=== PATIENT | female | born 1990 | race Caucasian/White ===

== ENCOUNTER 2017-11-21 02:25 | Inpatient (IN) ==
--- OUTSIDE RECORDS SUMMARY | 2017-11-21 05:53 | External Medical Summary | Continuity of Care Document ---
:1990 Author Organization [facility] Address [address] [place], [place] [id number] Phone Care Team Providers Name Role Phone Maribel Aicha BAILEY Unavailable Unavailable Allergies, Adverse Reactions, Alerts Substance Reaction Severity Status nitrofurantoin sick to stomach Unknown Active sulfamethoxazole dizzy, nausea, vomiting Unknown Active trimethoprim Unknown Active Medications Medication Instructions Dosage Effective Dates Status Comments (start - stop) 19 29 mg chew 1 tablet by Not Available - Active iron-1 mg chewable oral route every tablet day Problems Condition Effective Dates (start - stop) Clinical Status Vaginal Discharge or Lesion - Pap Smear Screening, Cervix - Encounter for suprvsn of normal - , second trimester 11 weeks gestation of - Qualitative platelet defects Qualitative platelet defects Follow-Up, Routine - Encounter for suprvsn of normal - , first trimester 13 weeks gestation of - Encounter for suprvsn of normal - , first trimester 13 weeks gestation of - Active Procedures Procedure Date Pap Smear handling/transport Initial OB Visit No Charge - GREASE MAN Immuniz admnin, 1 vac, sngl/combo 19 Yrs + Flu Vaccine - Quadrivalent Results Test Name Date and Time Measure Units Reference Range Abnormal Flag Comments Panel Description: OBSTETRIC PANEL WHITE BLOOD CELL 7.9 Thousand/uL 3.8-10.8 N COUNT 11:45:00 RED BLOOD CELL 4.62 Million/uL 3.80-5.10 N COUNT 11:45:00 HEMOGLOBIN 9.1 g/dL 11.7-15.5 L 11:45:00 HEMATOCRIT 30.5 % 35.0-45.0 L 11:45:00 MCV 66.0 fL 80.0-100.0 L 11:45:00 MCH 19.7 pg 27.0-33.0 L 11:45:00 MCHC 29.8 g/dL 32.0-36.0 L 11:45:00 RDW 21.3 % 11.0-15.0 H 11:45:00 PLATELET COUNT 172 Thousand/uL 140-400 N 11:45:00 MPV TNP fL Result not 11:45:00 calculated because one or morerequired values exceed analytical limits. * Test not performed. * ABSOLUTE 5522 cells/uL 0525-5522 N NEUTROPHILS 11:45:00 ABSOLUTE 1817 cells/uL 850-3900 N LYMPHOCYTES 11:45:00 ABSOLUTE 450 cells/uL 200-950 N MONOCYTES 11:45:00 ABSOLUTE 87 cells/uL 15-500 N EOSINOPHILS 11:45:00 ABSOLUTE 24 cells/uL 0-200 N BASOPHILS 11:45:00 NEUTROPHILS 69.9 % N 11:45:00 LYMPHOCYTES 23.0 % N 11:45:00 MONOCYTES 5.7 % N 11:45:00 EOSINOPHILS 1.1 % N 11:45:00 BASOPHILS 0.3 % N 11:45:00 ANTIBODY SCREEN, NO ANTIBODIES N RBC W/REFL ID, 11:45:00 DETECTED Reference range TITER AND AG No antibodies detected This assay is a screening test for the detection of red blood cell antibodies. The test is not to be used for pretransfusion screening or for the medical management of an alloimmunized . ABO GROUP B 11:45:00 RH TYPE RH(D) 11:45:00 POSITIVE RPR (DX) W/REFL NON-REACTIVE NON-REACTIV N TITER AND 11:45:00 E CONFIRMATORY TESTING HEPATITIS B NON-REACTIVE NON-REACTIV N SURFACE ANTIGEN 11:45:00 E RUBELLA ANTIBODY 0.99 index L Index (IGG) 11:45:00 Interpretation ----- <0.90 Not consistent with Immunity 0.90-0.99 Equivocal > or=1.00 Consistent with Immunity The presence of rubella IgG antibody suggests immunization or past or current infection withrubella virus.Test performed at [facility] [id number] [place] [address]Ofojrct r: JENNY MUÑOZ DO,MPH Panel Description: OBSTETRIC PANEL WHITE BLOOD CELL 7.9 Thousand/uL 3.8-10.8 N COUNT 11:45:00 RED BLOOD CELL 4.62 Million/uL 3.80-5.10 N COUNT 11:45:00 HEMOGLOBIN 9.1 g/dL 11.7-15.5 L 11:45:00 HEMATOCRIT 30.5 % 35.0-45.0 L 11:45:00 MCV 66.0 fL 80.0-100.0 L 11:45:00 MCH 19.7 pg 27.0-33.0 L 11:45:00 MCHC 29.8 g/dL 32.0-36.0 L 11:45:00 RDW 21.3 % 11.0-15.0 H 11:45:00 PLATELET COUNT 172 Thousand/uL 140-400 N 11:45:00 MPV TNP fL Result not 11:45:00 calculated because one or morerequired values exceed analytical limits. * Test not performed. * ABSOLUTE 5522 cells/uL 0093-5230 N NEUTROPHILS 11:45:00 ABSOLUTE 1817 cells/uL 850-3900 N LYMPHOCYTES 11:45:00 ABSOLUTE 450 cells/uL 200-950 N MONOCYTES 11:45:00 ABSOLUTE 87 cells/uL 15-500 N EOSINOPHILS 11:45:00 ABSOLUTE 24 cells/uL 0-200 N BASOPHILS 11:45:00 NEUTROPHILS 69.9 % N 11:45:00 LYMPHOCYTES 23.0 % N 11:45:00 MONOCYTES 5.7 % N 11:45:00 EOSINOPHILS 1.1 % N 11:45:00 BASOPHILS 0.3 % N 11:45:00 ANTIBODY SCREEN, NO ANTIBODIES N RBC W/REFL ID, 11:45:00 DETECTED Reference range TITER AND AG No antibodies detected This assay is a screening test for the detection of red blood cell antibodies. The test is not to be used for pretransfusion screening or for the medical management of an alloimmunized . ABO GROUP B 11:45:00 RH TYPE RH(D) 11:45:00 POSITIVE RPR (DX) W/REFL NON-REACTIVE NON-REACTIV N TITER AND 11:45:00 E CONFIRMATORY TESTING HEPATITIS B NON-REACTIVE NON-REACTIV N SURFACE ANTIGEN 11:45:00 E RUBELLA ANTIBODY 0.99 index L Index (IGG) 11:45:00 Interpretation ----- <0.90 Not consistent with Immunity 0.90-0.99 Equivocal > or=1.00 Consistent with Immunity The presence of rubella IgG antibody suggests immunization or past or current infection withrubella virus.Test performed at [facility] [id number] [place] [address]Xyfxluh r: JENNY MUÑOZ DO,MPH Panel Description: OBSTETRIC PANEL WHITE BLOOD CELL 7.9 Thousand/uL 3.8-10.8 N COUNT 11:45:00 RED BLOOD CELL 4.62 Million/uL 3.80-5.10 N COUNT 11:45:00 HEMOGLOBIN 9.1 g/dL 11.7-15.5 L 11:45:00 HEMATOCRIT 30.5 % 35.0-45.0 L 11:45:00 MCV 66.0 fL 80.0-100.0 L 11:45:00 MCH 19.7 pg 27.0-33.0 L 11:45:00 MCHC 29.8 g/dL 32.0-36.0 L 11:45:00 RDW 21.3 % 11.0-15.0 H 11:45:00 PLATELET COUNT 172 Thousand/uL 140-400 N 11:45:00 MPV TNP fL Result not 11:45:00 calculated because one or morerequired values exceed analytical limits. * Test not performed. * ABSOLUTE 5522 cells/uL 4028-6201 N NEUTROPHILS 11:45:00 ABSOLUTE 1817 cells/uL 850-3900 N LYMPHOCYTES 11:45:00 ABSOLUTE 450 cells/uL 200-950 N MONOCYTES 11:45:00 ABSOLUTE 87 cells/uL 15-500 N EOSINOPHILS 11:45:00 ABSOLUTE 24 cells/uL 0-200 N BASOPHILS 11:45:00 NEUTROPHILS 69.9 % N 11:45:00 LYMPHOCYTES 23.0 % N 11:45:00 MONOCYTES 5.7 % N 11:45:00 EOSINOPHILS 1.1 % N 11:45:00 BASOPHILS 0.3 % N 11:45:00 ANTIBODY SCREEN, NO ANTIBODIES N RBC W/REFL ID, 11:45:00 DETECTED Reference range TITER AND AG No antibodies detected This assay is a screening test for the detection of red blood cell antibodies. The test is not to be used for pretransfusion screening or for the medical management of an alloimmunized . ABO GROUP B 11:45:00 RH TYPE RH(D) 11:45:00 POSITIVE RPR (DX) W/REFL NON-REACTIVE NON-REACTIV N TITER AND 11:45:00 E CONFIRMATORY TESTING HEPATITIS B NON-REACTIVE NON-REACTIV N SURFACE ANTIGEN 11:45:00 E RUBELLA ANTIBODY 0.99 index L Index (IGG) 11:45:00 Interpretation ----- <0.90 Not consistent with Immunity 0.90-0.99 Equivocal > or=1.00 Consistent with Immunity The presence of rubella IgG antibody suggests immunization or past or current infection withrubella virus.Test performed at [facility] [id number] [place] [id number] r: JENNY MUÑOZ DO,MPH Panel Description: CBC MORPHOLOGY CBC MORPHOLOGY 11:45:00 SEE NOTE NORMAL N Tear-drop cells 1 +Anisocytosis 1 +Microcytosis 1 +Macrocytosis 1 +Poikilocytosis 1 +Polychromasia 1 +Ovalocytes 2 +Crenated red blood cells 1 +Test performed at [facility] [id number] [place] [phone]: JENNY MUÑOZ DO,MPH Panel Description: ADD ON COMPREHENSIVE METABOLIC PANEL GLUCOSE 78 mg/dL 65-99 N Fasting 11:45:00 reference interval UREA NITROGEN 10 mg/dL 7-25 N (BUN) 11:45:00 CREATININE 0.53 mg/dL 0.50-1.10 N 11:45:00 eGFR NON-AFR. 132 mL/min/1. > N TRINIDADIAN 11:45:00 73m2 OR=60 eGFR 153 mL/min/1. > N TRINIDADIAN 11:45:00 73m2 OR=60 BUN/CREATININE NOT APPLICABLE (calc) 6-22 RATIO 11:45:00 SODIUM 138 mmol/L 135-146 N 11:45:00 POTASSIUM 3.7 mmol/L 3.5-5.3 N 11:45:00 CHLORIDE 104 mmol/L 98-110 N 11:45:00 CARBON DIOXIDE 16 mmol/L 20-31 L 11:45:00 CALCIUM 9.2 mg/dL 8.6-10.2 N 11:45:00 PROTEIN, TOTAL 7.2 g/dL 6.1-8.1 N 11:45:00 ALBUMIN 4.3 g/dL 3.6-5.1 N 11:45:00 GLOBULIN 2.9 g/dL 1.9-3.7 N 11:45:00 (calc) ALBUMIN/GLOBULIN 1.5 (calc) 1.0-2.5 N RATIO 11:45:00 BILIRUBIN, TOTAL 0.3 mg/dL 0.2-1.2 N 11:45:00 ALKALINE 60 U/L 33-115 N PHOSPHATASE 11:45:00 AST 14 U/L 10-30 N 11:45:00 ALT 8 U/L 6-29 N 11:45:00 [id number] SEE NOTE A Comprehensive 11:45:00 Metabolic Panel was requested on aserum sample that has been in storage beyond thepublished stability of carbon dioxide and totalbilirubin. Clinical interpretations should considerthis stability data.Test performed at [facility] [id number] [place] [address]Fkowqrlk: JENNY MUÑOZ DO,MPH Panel Description: ADD ON COMPREHENSIVE METABOLIC PANEL GLUCOSE 78 mg/dL 65-99 N Fasting 11:45:00 reference interval UREA NITROGEN 10 mg/dL 7-25 N (BUN) 11:45:00 CREATININE 0.53 mg/dL 0.50-1.10 N 11:45:00 eGFR NON-AFR. 132 mL/min/1. > N TRINIDADIAN 11:45:00 73m2 OR=60 eGFR 153 mL/min/1. > N TRINIDADIAN 11:45:00 73m2 OR=60 BUN/CREATININE NOT APPLICABLE (calc) 6-22 RATIO 11:45:00 SODIUM 138 mmol/L 135-146 N 11:45:00 POTASSIUM 3.7 mmol/L 3.5-5.3 N 11:45:00 CHLORIDE 104 mmol/L 98-110 N 11:45:00 CARBON DIOXIDE 16 mmol/L 20-31 L 11:45:00 CALCIUM 9.2 mg/dL 8.6-10.2 N 11:45:00 PROTEIN, TOTAL 7.2 g/dL 6.1-8.1 N 11:45:00 ALBUMIN 4.3 g/dL 3.6-5.1 N 11:45:00 GLOBULIN 2.9 g/dL 1.9-3.7 N 11:45:00 (calc) ALBUMIN/GLOBULIN 1.5 (calc) 1.0-2.5 N RATIO 11:45:00 BILIRUBIN, TOTAL 0.3 mg/dL 0.2-1.2 N 11:45:00 ALKALINE 60 U/L 33-115 N PHOSPHATASE 11:45:00 AST 14 U/L 10-30 N 11:45:00 ALT 8 U/L 6-29 N 11:45:00 [id number] SEE NOTE A Comprehensive 11:45:00 Metabolic Panel was requested on aserum sample that has been in storage beyond thepublished stability of carbon dioxide and totalbilirubin. Clinical interpretations should considerthis stability data.Test performed at [facility] [id number] [place] [address]Oilzjpqf: JENNY MUÑOZ DO,MPH Panel Description: HIV 1/2 ANTIGEN/ANTIBODY,FOURTH GENERATION W/RFL HIV NON-REACTIVE NON-REACTIVE N HIV-1 antigen and HIV-1/HIV- 2 antibodies were AG/AB, 11:45:00 notdetected. There is no laboratory evidence of 4TH GEN HIVinfection. PLEASE NOTE: This information has been disclosed toyou from records whose confidentiality may beprotected by state law. If your state requires suchprotection, then the state law prohibits you frommaking any further disclosure of the informationwithout the specific written consent of the personto whom it pertains, or as otherwise permitted by law.A general authorization for the release of medical orother information is NOT sufficient for this purpose. For additional information please refer tohttp://education.[employer]/faq/JAO775(This link is being provided for informational/educational purposes only.) The performance of this assay has not been clinicallyvalidated in patients less than 2 years old. REPORT COMMENT:FASTING:NOTest performed at [facility] [id number] [place], [place] [id number]: JENNY MUÑOZ DO,MPH Panel Description: CBC MORPHOLOGY CBC MORPHOLOGY 11:45:00 SEE NOTE NORMAL N Tear-drop cells 1 +Anisocytosis 1 +Microcytosis 1 +Macrocytosis 1 +Poikilocytosis 1 +Polychromasia 1 +Ovalocytes 2 +Crenated red blood cells 1 +Test performed [place] [address]Director: JENNY MUÑOZ DO,MPH Panel Description: CBC MORPHOLOGY CBC MORPHOLOGY 11:45:00 SEE NOTE NORMAL N Tear-drop cells 1 +Anisocytosis 1 +Microcytosis 1 +Macrocytosis 1 +Poikilocytosis 1 +Polychromasia 1 +Ovalocytes 2 +Crenated red blood cells 1 +Test performed at [facility] [id number] [place] [id number]: JENNY MUÑOZ DO,MPH Panel Description: HIV 1/2 ANTIGEN/ANTIBODY,FOURTH GENERATION W/RFL HIV NON-REACTIVE NON-REACTIVE N HIV-1 antigen and HIV-1/HIV- 2 antibodies were AG/AB, 11:45:00 notdetected. There is no laboratory evidence of 4TH GEN HIVinfection. PLEASE NOTE: This information has been disclosed toyou from records whose confidentiality may beprotected by state law. If your state requires suchprotection, then the state law prohibits you frommaking any further disclosure of the informationwithout the specific written consent of the personto whom it pertains, or as otherwise permitted by law.A general authorization for the release of medical orother information is NOT sufficient for this purpose. For additional information please refer tohttp://[employer]/faq/FOP203(This link is being provided for informational/educational purposes only.) The performance of this assay has not been clinicallyvalidated in patients less than 2 years old. REPORT COMMENT:FASTING:NOTest performed at [facility] [place] [place] [address]Ejzzydyd: JENNY MUÑOZ DO,MPH Panel Description: HIV 1/2 ANTIGEN/ANTIBODY,FOURTH GENERATION W/RFL HIV NON-REACTIVE NON-REACTIVE N HIV-1 antigen and HIV-1/HIV- 2 antibodies were AG/AB, 11:45:00 notdetected. There is no laboratory evidence of 4TH GEN HIVinfection. PLEASE NOTE: This information has been disclosed toyou from records whose confidentiality may beprotected by state law. If your state requires suchprotection, then the state law prohibits you frommaking any further disclosure of the informationwithout the specific written consent of the personto whom it pertains, or as otherwise permitted by law.A general authorization for the release of medical orother information is NOT sufficient for this purpose. For additional information please refer tohttp://[employer]/faq/ZBD825(This link is being provided for informational/educational purposes only.) The performance of this assay has not been clinicallyvalidated in patients less than 2 years old. Test performed at [facility] [address]Tneicvav: JENNY MUÑOZ DO,MPH Panel Description: TEST AUTHORIZATION TEST NAME: COMPREHENSIVE 11:45:00 METABOLIC NOAH TEST CODE: [id number] 11:45:00 CLIENT JOSELIN GAONA CONTACT: 11:45:00 [id number] See Below The laboratory testing on 11:45:00 this patient was verbally requestedor confirmed by the ordering physician or his or her authorizedrepresentative after contact with an employee of [employer].Federal regulations require that we maintain on file writtenauthorization for all laboratory testing. Accordingly we are askingthat the ordering physician or his or her authorized representativesign a copy of this report and promptly return it to the clientservice sales representative uniforms. Signature: [phone] SEE NOTE Fax number: [phone] 11:45:00 Test performed at [facility] [address] [address]Mikxlpvw: JENNY MUÑOZ DO,MPH Panel Description: Ferritin [Mass/volume] in Serum or Plasma FERRITIN 11:45:00 6 ng/mL 10-154 L REPORT COMMENT:FASTING: NOTest performed at [facility] [address] [address]Cdyzbbgb: JENNY MUÑOZ DO,MPH Panel Description: Bacteria identified in Urine by Culture CULTURE, URINE, 12:06:00 SEE NOTE CULTURE, URINE, ROUTINE ROUTINE MICRO NUMBER: [id number] TEST STATUS: FINAL SPECIMEN SOURCE: URINE, CLEAN CATCH SPECIMEN QUALITY: ADEQUATE RESULT: No GrowthREPORT COMMENT:RFASTING:UNKNOWNTest performed at [facility] [address] [address]Gsvaahiw: JENNY MUÑOZ DO,MPH Panel Description: CHLAMYDIA/N. GONORRHOEAE RNA, TMA CHLAMYDIA NOT DETECTED NOT DETECTED N TRACHOMATIS RNA, 12:08:00 TMA NEISSERIA NOT DETECTED NOT DETECTED N GONORRHOEAE RNA, 12:08:00 TMA [id number] SEE NOTE This test was 12:08:00 performed using the APTIMA COMBO2 Assay([employer] The analytical performance characteristics of this assay, when used to test SurePath specimens havebeen determined by [facility]. REPORT COMMENT:FASTING:UNKNO WNTest performed at [facility] [id number] [place] [address]Sqlzukih: JENNY MUÑOZ DO,MPH Panel Description: Pap Smear With HPV Reflex If ASCUS Document Pap Smear 10:45:00 See scanned report NOTE: This patient has pending results not included in this document. Advance Directives Directive Yes / No Effective Date File Name Unknown Encounters Encounter Practice Location Reason(s) Diagnoses Date Provider Care Team Description For Visit Members Leonel Higuera Encounter for Dec- Gaona In Womens suprvsn of normal 1-201 Joselin. Mu KELLEY, , first 7 700 [address] [id number] weeks Medical 1522, gestation of [facility], Eduardo Melvin, 120, [id number], [facility] [place], tel:[phone] , [place]. tel: [phone] Leonel Higuera Encounter for Dec- Gaona In Womens Ultrasound suprvsn of normal 1-201 Joselin. Mu KELLEY, , first 7 700 PO Box weeks Medical 1522, gestation of [facility], Eduardo eMlvin, 120, [id number], [facility] [place], tel:[phone] , [place]. tel: [phone] Leonel Higuera Vaginal Discharge Nov- Gaona Referring In Womens or LesionPap 0-201 Joselin. Provider: Mu KELLEY, Smear Screening, 7 700 Joselin Gaona PO Box CervixEncounter Medical K, 700 1522, for suprvsn of [facility], normal , Eduardo Melvin [address] MÉNDEZ, second 120, Eduardo 120, [id number], [id number] weeks Kalen Viola, gestation of [place], [place], tel: [phone]. , [place]. tel: tel: [phone] Leonel Higuera Qualitative Mar- Gaona Referring In Womens platelet 3-201 Joselin. Provider: Mu KELLEY, defectsQualitativ 5 700 Joselin Gaona PO Box e platelet Medical K, 700 1522, defectsPostpartum [facility], Follow-Up, Dr, [facility] Dr MÉNDEZ, Routine 120, Eduardo 120, [id number], Kalen Higuera, [place], [place], tel: [phone]. , [place]. tel: tel: [phone] Leonel Higuera Gaona Referring In Womens 1-201 Joselin. Provider: [facility], 5 700 Joselin Gaona PO Box Medical K, 700 1522, [address], [facility] Dr MÉNDEZ, 120, Eduardo 120, [id number], Kalen Higuera, [place], [place], tel: [phone]. , [place]. tel: tel: [phone] Leonel Higuera Gaona In Womens 7-201 Joselin. Health [place], 5 700 PO [address] Medical 15[address], [address] [place], [facility] [place], 120, [id number], [facility] [place], tel: [phone] , [place]. tel: [phone] Leonel Higuera Gaona In Womens 6-201 Joselin. Health [place], 5 700 PO [address] Medical 15[address], [address] [place], [facility] [place], 120, [id number], [facility] [place], tel: [phone] , [place]. tel: [phone] Family History Family Member Diagnosis Age At Onset No family history of Venous Thrombosis No family history of Colon Cancer Maternal Grandmother Diabetes mellitus No family history of Pulmonary Embolism No family history of Ovarian Cancer No family history of Uterine Cancer No family history of Breast Cancer Immunizations Vaccine Date Status Comments Influenza, injectable, completed Source: New Immunization Record quadrivalent, preservative free, 3 yrs or older Influenza, seasonal, injectable, completed Source: New Immunization Record preservative free, 3 yrs or older Tdap completed Source: New Immunization Record Influenza, injectable, completed Note: Flu mist.Invalid quadrivalent, preservative free, documented admin date was 3 yrs or older . ; Source: Other Provider Payers Payer name Insurance type Covered alliance party ID Authorization(s) [facility] - [id number] Medicaid [employer] - [id number] Medicaid [employer] - [id number] Medicaid [employer] - [id number] Medicaid Social History Type Description Quantity Date Captured Alcohol Use Details No Caffeine Use Details combo 2 cups per day Tobacco Use Status Smoking Status Former smoker Non-Smoking Tobacco Use : No Details Available : No Details Available Details Vital Signs Date / Height Weight BMI Pulse Blood Temperature Respiratory Body Head BMI Time: Rate Pressure Rate Surface Circumference percentile Area 117.70 20.6 lbs 8 mm[Hg] 10:53 kg/m AM eter (2) Chief Complaint And Reason For Visit Unknown Chief Complaint And Reason For Visit Reason For Referral Reason For Referral Unknown Plan Of Care Date Type Action Status Appointment Darya Salmon BOOKED Future Order: Radiology Order Nuchal Translucency ([id number]) Ordered Future Order: Lab Order Pap Smear With HPV Reflex If ASCUS Ordered ([id number]) Date Type Problem Goal Intervention Status Start Date Unknown. History Of Present Illness Encounter Date Complaint History Of Present Illness This patient has no known history of present illness Functional Status Encounter Date Functional Assessment Cognitive Assessment Unknown Medications Administered Medication Instructions Dosage Effective Dates (start - stop) Status Comments Drug Treatment Unknown Instructions Date Instruction Additional Information HIV and other routine tests risk factors identified by history anticipated course of care nutrition and weight gain counseling, special diet toxoplasmosis precautions (cats / raw meat) sexual activity exercise indications for ultrasound influenza vaccine environmental / work hazards travel use of any medications (including supplements, vitamins, herbs, OTC drugs) domestic violence seat belt use childbirth classes / hospital facilities hospital registration genetic testing labor signs group B strep screening TdaP vaccine anticipated course of care nutrition and weight gain counseling, special diet toxoplasmosis precautions (cats / raw meat) exercise indications for ultrasound influenza vaccine environmental / work hazards travel tobacco (ask, advise, assess, assist and arrange) alcohol illicit / recreational drugs use of any medications (including supplements, vitamins, herbs, OTC drugs) smoking counseling domestic violence seat belt use genetic testing new ob handbook HIV and other routine tests risk factors identified by history
--- OUTSIDE RECORDS SUMMARY | 2017-11-21 05:53 | External Medical Summary ---
:1990 Author Organization eClinicalWorks Care Team Providers Name Role Phone Riddhi Rivas Provider Role Unavailable Allergies No Known Allergies Problems Problem Type Condition Code Onset Dates Condition Status Assessment Cough R05 Active Medications Medication Code System Code Instructions Start Date End Date Status Dosage ProAir HFA [facility] [phone] (90 Base) Mar 13, 2 puffs as 1-85 MCG/ACT 2016 needed Inhalation every 4 hrs Results No Known Results Summary Purpose eClinicalWorks Submission
--- OUTSIDE RECORDS SUMMARY | 2017-11-21 05:53 | External Medical Summary | Continuity of Care Document ---
:1992 Author Organization [email or web address] Address [address] [place], [place] [address] Phone Care Team Providers Name Role Phone Maribel Aicha BAILEY Unavailable Unavailable Allergies, Adverse Reactions, Alerts Substance Reaction Severity Status nitrofurantoin sick to stomach Unknown Active sulfamethoxazole dizzy, nausea, vomiting Unknown Active trimethoprim Unknown Active Medications Medication Instructions Dosage Effective Dates Status Comments (start - stop) ferrous sulfate take 1 tablet by 325 MG - Active 325 mg (65 mg ORAL route 2 times iron) tablet every day 19 29 mg chew 1 tablet by Not Available - Active iron-1 mg chewable oral route every tablet day Problems Condition Effective Dates (start - stop) Clinical Status Low Lying Placenta Nos Or W/out - Hemorrhage, Second Trimester 20 weeks gestation of - Qualitative platelet defects Qualitative platelet defects Follow-Up, Routine - Vaginal Discharge or Lesion - Pap Smear Screening, Cervix - Encounter for suprvsn of normal - , second trimester 11 weeks gestation of - Matern care for oth or susp poor fetl - grth, 2nd tri, unsp 17 weeks gestation of - Matern care for oth or susp poor fetl - grth, 2nd tri, unsp 20 weeks gestation of - Encounter for suprvsn of normal - , first trimester 13 weeks gestation of - Encounter for suprvsn of normal - , first trimester 13 weeks gestation of - Active Procedures Procedure Date OB Visit No Charge Results Test Name Date and Time Measure Units Reference Range Abnormal Flag Comments Unknown Advance Directives Directive Yes / No Effective Date File Name Unknown Encounters Encounter Practice Location Reason(s) Diagnoses Date Provider Care Team Description For Visit Members Leonel [place] Low Lying Travon-2 Bassett In Womens Placenta Nos Or 9-201 Joselin. Health [facility]IE, W/out Hemorrhage, 8 700 [address] Second Medical [address]22, [email or web address] weeks [facility], gestation of Eduardo Melvin, 120, , [place], [place], tel:[phone] , [place]. tel: [phone] Leonel [place] Matern care for Travon-2 Bassett In Womens Ultrasound oth or susp poor 9-201 Joselin. Health ALLIE, fetl grth, 2nd 8 700 PO Box tri, [email or web address] weeks Medical 1522, gestation of [facility] Eduardo Melvin, 120, , [place], [place], tel:[phone] , [place]. tel: [phone] Leonel [place] Matern care for Travon-0 Bassett In Womens oth or susp poor 8-201 Joselin. Health ALLIE, fetl grth, 2nd 8 700 PO Box tri, [email or web address] weeks Medical 1522, gestation of [facility] Eduardo Melvin, 120, , [place], [place], tel:[phone] , [place]. tel: [phone] Leonel [place] Dec-2 Bassett In Womens 7-201 Joselin. Health ALLIE, 7 700 PO [address] Medical [address]22, [facility], Eduardo Melvin, 120, [id number], [place], tel:[phone] , [place]. tel:[phone] Leonel [place] Encounter for Dec-1 Bassett In Womens suprvsn of normal 1-201 Joselin. Health ALLIE, , first 7 700 PO Box [email or web address] weeks Medical 1522, gestation of [facility] Eduardo Melvin, 120, [id number], [place], [place], tel:[phone] , [place]. tel: [phone] Leonel [place] Encounter for May- Bassett In Womens Ultrasound suprvsn of normal 1-201 Joselin. Health ALLIE, , first 7 700 PO Box [email or web address] weeks Medical 1522, gestation of [facility], , Eduardo MÉNDEZ, 120, [id number], [place], [place], tel:[phone] , [place]. tel: [phone] Leonel [place] Vaginal Discharge Nov- Bassett Referring In Womens or LesionPap 0-201 Joselin. Provider: Mu KELLEY, Smear Screening, 7 700 Joselin Bassett PO Box CervixEncounter Medical K, 700 1522, for suprvsn of [facility], normal , , [facility] Dr MÉNDEZ, second 120, Eduardo 120, [id number], [email or web address] weeks [place], [place], tel: [phone]. , [place]. tel: tel: [phone] Leonel [place] Qualitative Bassett Referring In Womens platelet 3-201 Joselin. Provider: Mu KELLEY, defectsQualitativ 5 700 Joselin Bassett PO Box e platelet Medical K, 700 1522, [facility], , [facility] Dr MÉNDEZ, Routine 120, Eduardo 120, [id number], [place], [place], tel: [phone]. , [place]. tel: tel: [phone] Leonel [place] Dec- Bassett Referring In Womens 1-201 Joselin. Provider: Mu KELLEY, 5 700 Joselin Bassett PO Box Medical K, 700 1522, [facility] [place], , [facility] [address] MÉNDEZ, 120, Eduardo 120, , [place], [place], tel:[phone]. , [place]. tel: tel: [phone] Leonel [place] Jul- Bassett In Womens 7-201 Joselin. Health ALLIE, 5 700 PO [address] Medical [address], [address] [place], [place], 120, [id number], [facility] [place], tel:[phone] , . tel: [phone] Leonel [place] Bassett In Womens 6-201 Joselin. [facility], 5 700 [address] Medical [address], [address] [place], [place], 120, [id number], [facility] [place], tel:[phone] , [place]. tel: [phone] Family History Family Member Diagnosis Age At [...] Provider Payers Payer name Insurance type Covered constitution party ID Authorization(s) [facility] [id number] Medicaid [employer] [place] [id number] [place] [employer] [place] [id number] Medicaid [employer] [facility] [place] [id number] Medicaid Social History Type Description Quantity Date Captured Alcohol Use Details No Caffeine Use Details Unknown Tobacco Use Status Smoking Status Former smoker Vital Signs Date / Height Weight BMI Pulse Blood Temperature Respiratory Body Head BMI Time: Rate Pressure Rate Surface Circumference percentile Area 131.90 23.1 lbs 4 mm[Hg] 1:54 kg/m PM eter (2) Chief Complaint And Reason For Visit Unknown Chief Complaint And Reason For Visit Reason For Referral Reason For Referral Unknown Plan Of Care Date Type Action Status Appointment Darya Salmon BOOKED Future Order: Radiology Order Complete OB Ultrasound > 14 Ordered Weeks ([id number]) Future Order: Radiology Order Nuchal Translucency ([id number]) Ordered Future Order: Lab Order Pap Smear [...]
--- OUTSIDE RECORDS SUMMARY | 2017-11-21 05:53 | External Medical Summary ---
:1992 Author Organization [employer] Care Team Providers Name Role Phone Marlyn Villalpando Provider Role Unavailable Allergies, Adverse Reactions, Alerts Substance Reaction Event Type N.K.D.A. Info Not Available Non Drug Allergy Problems Problem Type Condition Code Onset Dates Condition Status Assessment Viral syndrome B34.9 Active Assessment Cough R05 Active Medications Medication Code System Code Instructions Start Date End Date Status Dosage ProAir HFA [facility] [id number] (90 Base) Mar 13, puffs as 1-85 MCG/ACT 2016 needed Inhalation every 4 hrs Procedures Procedure Coding System Code Date OFFICE VISIT, HOSPICE CLINICAL MANAGER-LOW COMPLEXITY (30 MIN.) CPT-4 21457 Mar 13, 2016 Vital Signs Date/Time: Mar 13, 2016 Temperature 99.8 F Height 64 in Weight 114.8 lbs Blood Pressure Diastolic 60 mm Hg Blood Pressure Systolic 110 mm Hg Cardiac Monitoring Heart Rate 61 /min BMI 19.70 Index Oximetry 97 % Results No Known Results Summary Purpose [employer] Submission
--- OUTSIDE RECORDS SUMMARY | 2017-11-21 05:53 | External Medical Summary | Continuity of Care Document ---
:1992 Author Organization [facility] [facility] Address [address] [place], [place] [id number] Phone Care Team Providers Name Role Phone [...] route 2 times iron) tablet every day RANITIDINE HCL take 1 tablet by - Active (unknown strength) oral route 2 times every day with glass of water 19 29 mg chew 1 tablet by Not Available - Active iron-1 mg chewable oral route every tablet day Problems Condition Effective Dates (start - stop) Clinical Status Encounter for suprvsn of normal - , second trimester 24 weeks gestation of - Qualitative platelet defects [...] tri, unsp 20 weeks gestation of - Low Lying Placenta Nos Or W/out - Hemorrhage, Second Trimester 20 weeks gestation of - Encounter for [...] For Visit Members Leonel [place] Encounter for Jul-2 Bassett In Womens suprvsn of normal 6-201 Joselin. Health ALLIE, , second 8 700 PO Box [email or web address] weeks Medical 1522, gestation of [facility] Eduardo Melvin, 120, , [place], [place], tel:[phone] , [place]. tel: [phone] Leonel [place] Low Lying Jun-2 Bassett In Womens Placenta Nos Or Joselin. Health ALLIE, W/out Hemorrhage, 8 700 [address] Second Medical 1522, [id number] weeks [facility], gestation of Eduardo Melvin, 120, , [place], tel:[phone] , [place]. tel: [phone] Leonel [place] Matern care for Travon-2 Bassett In Womens Ultrasound oth or susp poor -201 Joselin. Health ALLIE, fetl grth, 2nd 8 700 PO Box tri, [email or web address] weeks Medical 1522, gestation of [facility] [place] Eduardo Melvin, 120, [id number], [place], tel:[phone] , [place]. tel: [phone] Leonel [place] Matern care for Travon-0 Bassett In Womens oth or susp poor - Joselin. Health ALLIE, fetl grth, 2nd 8 700 PO Box tri, [email or web address] weeks Medical 1522, gestation of [facility] [place] Eduardo Melvin, 120, [id number], [place], tel:[phone] , [place]. tel: [phone] Leonel [place] Dec-2 Bassett In Womens 7-201 Joselin. Health ALLIE, 7 700 PO Box Medical 1522, [facility], Eduardo Melvin, 120, [id number], [place], [place], tel: [phone] , [place]. tel: [phone] Leonel [place] Encounter for Dec-1 Bassett In Womens suprvsn of normal 1-201 Joselin. Health ALLIE, , first 7 700 PO Box [email or web address] weeks Medical 1522, gestation of [facility], Eduardo Melvin, 120, [id number], [place], tel:[phone] , [place]. tel: [phone] Leonel [place] Encounter for Dec-1 Bassett In Womens Ultrasound suprvsn of normal 1-201 Joselin. Mu KELLEY, , first 7 700 PO Box [email or web address] weeks Medical 1522, gestation of [facility], Eduardo Melvin, 120, , [place], [place], tel:[phone] , [place]. tel: [phone] Leonel [place] Vaginal Discharge Nov-3 Bassett Referring In Womens or LesionPap 0-201 Joselin. Provider: Mu KELLEY, Smear Screening, 7 700 Joselin Bassett PO Box CervixEncounter Medical K, 700 1522, for suprvsn of [facility], normal , Dr [facility] Dr MÉNDEZ, second 120, Eduardo 120, [id number], [email or web address] weeks [place], [place] of [place], tel: [phone]. , [place]. tel: tel: [phone] Leonel [place] Qualitative Oct-2 Bassett Referring In Womens platelet 3-201 Joselin. Provider: Mu KELLEY, defectsQualitativ 5 700 Joselin Bassett PO Box e platelet Medical K, 700 1522, defectsPostpartum [facility], Follow-Up, Dr [facility] Dr MÉNDEZ, Routine 120, Eduardo 120, [id number], [place], [place], tel: [phone]. , [place]. tel: tel: [phone] Leonel [place] Bassett Referring In Womens 1-201 Joselin. Provider: Mu KELLEY, 5 700 Joselin Bassett PO Box Medical K, 700 1522, [place] [address], [facility] [place], 120, Eduardo 120, [id number], [place], [place], tel: [phone]. , [place]. tel: tel: [phone] Leonel [place] Bassett In Womens 7-201 Joselin. Mu KELLEY, 5 700 PO Box Medical [address], [address], [facility] [place], 120, [id number], [facility] [place], tel: [phone] , [place]. tel: [phone] Leonel [place] Bassett In Womens 6-201 Joselin. Mu KELLEY, 5 700 PO Box Medical 15[address], [address], [facility] [place], 120, [id number], [facility] [place], tel: [phone] , [place]. tel: [phone] Family History Family Member Diagnosis Age At [...] Insurance type Covered constitution party ID Authorization(s) [facility] - [id number] Medicaid [employer] [place] [id number] Medicaid [employer] [facility] [place] [id number] Medicaid [facility] - [id number] Medicaid Social History Type Description Quantity Date Captured Alcohol Use Details No Caffeine Use Details Unknown Tobacco Use Status Smoking Status Former smoker Vital Signs Date / Height Weight BMI Pulse Blood Temperature Respiratory Body Head BMI Time: Rate Pressure Rate Surface Circumference percentile Area 23 4 3:18 kg/m PM eter (2) 138.10 24.2 114/68 -2018 lbs 3 mm[Hg] 3:27 kg/m PM eter (2) Chief Complaint And Reason For Visit Unknown Chief Complaint And Reason For Visit Reason For Referral Reason For Referral Unknown Plan Of Care Date Type Action Status Future Order: Radiology Order Complete OB Ultrasound > 14 Ordered Weeks ([id number]) Future Order: Radiology Order Nuchal Translucency ([id number]) Ordered Future Order: Lab Order Pap Smear [...]
--- OUTSIDE RECORDS SUMMARY | 2017-11-21 05:54 | External Medical Summary | Continuity of Care Document ---
:1992 Author Organization [email or web address] Address [address] [place], [place] [address] Phone Care Team Providers Name Role Phone [...] mg chewable oral route every tablet day RANITIDINE HCL take 1 tablet by - Active (unknown strength) oral route 2 times every day with glass of water Problems Condition Effective Dates (start - stop) Clinical Status Matern care for oth or susp poor fetl - grth, 2nd tri, unsp Low Lying Placenta Nos Or W/out - Hemorrhage, Second Trimester Anemia complicating , second - trimester 27 weeks gestation of - Encounter for suprvsn [...] Second Trimester 20 weeks gestation of - Low Lying Placenta Nos Or W/out - Hemorrhage, Third Trimester 29 weeks gestation of - Encounter for suprvsn of normal - , first trimester 13 weeks gestation of - Encounter for suprvsn of normal - , first trimester 13 weeks gestation of - Active Procedures Procedure Date OB Visit No Charge Results Test Name Date and Time Measure Units Reference Range Abnormal Flag Comments Panel Description: Glucose [Mass/volume] in Serum or Plasma --1 hour post 50 g glucose PO Gestational Diabetes 16:37:00 91 mg/dL 65-139 According to ADA, a glucose Screen threshold of >139 mg/dL after 50-gramload identifies approximately 80% of women with gestationaldiabetes mellitus, while the sensitivity is further increased toapproximately 90% by a threshold of >129 mg/dL. Panel Description: Hemoglobin [Mass/volume] in Blood Hemoglobin 16:37:00 10.2 g/dL 11.1-15.9 L Panel Description: Hematocrit [Volume Fraction] of Blood by Automated count Hematocrit 16:37:00 31.6 % 34.0-46.6 L Advance Directives Directive Yes / No Effective Date File Name Unknown Encounters Encounter Practice Location Reason(s) Diagnoses Date Provider Care Team Description For Visit Members Leonel [place] Low Lying Sep- Bassett In Womens Placenta Nos Or 3-201 Joselin. Mu KELLEY, W/out Hemorrhage, 8 700 PO [address] Third [id number] Medical 1522, weeks gestation [facility] of Eduardo Melvin, 120, [id number], [facility] [place], tel:[phone] , [place]. tel:[phone] Leonel [place] Matern care for Aug- Sobbing In Womens oth or susp poor 9-201 Mau. [facility], fetl grth, 2nd 8 700 PO Box tri, unspLow Medical 1522, Lying Placenta [facility], Nos Or W/out Drive, [place], Hemorrhage, Suite , Second 120, [place] TrimesterAnemia [place], tel:[phone] complicating [place], , second [id number], [id number] weeks [place]. gestation of tel: [phone] [facility] [place] Encounter for Feb-2 Bassett In Womens suprvsn of normal 6-201 Joselin. [facility] [place], , second 8 700 PO Box [email or web address] weeks Medical 1522, gestation of [facility], Eduardo Melvin, 120, , [place], [place], tel:[phone] , [place]. tel: [phone] [facility] [place] Low Lying Travon-2 Bassett In Womens Placenta Nos Or 9-201 Joselin. [facility] [place], W/out Hemorrhage, 8 700 PO Box Second Medical 1522, [email or web address] weeks [facility], gestation of Eduardo Melvin, 120, , [place], tel:[phone] , [place]. tel: [phone] [facility] [place] Matern care for Travon-2 Bassett In Womens Ultrasound oth or susp poor 9-201 Joselin. Health [place], fetl grth, 2nd 8 700 PO Box tri, [email or web address] weeks Medical 1522, gestation of [facility], Eduardo Melvin, 120, , [place], tel: [phone] , [place]. tel: [phone] [facility] [place] Matern care for Travon-0 Bassett In Womens oth or susp poor 8-201 Joselin. [facility] [place], fetl grth, 2nd 8 700 PO Box tri, [email or web address] weeks Medical 1522, gestation of [facility], Eduardo Melvin, 120, [id number], [place], tel:[phone] , [place]. tel: [phone] Leonel [place] Dec-2 Bassett In Womens 7-201 Joselin. Health ALLIE, 7 700 PO Box Medical 1522, [facility], Eduardo Melvin, 120, [id number], [place], tel:[phone] , [place]. tel: [phone] Leonel [place] Encounter for Dec-1 Bassett In Womens suprvsn of normal 1-201 Joselin. [facility] [place], , first 7 700 PO Box [email or web address] weeks Medical 1522, gestation of [facility], Eduardo Melvin, 120, , [place], [place], tel: [phone] , [place]. tel: [phone] Leonel [place] Encounter for Dec-1 Bassett In Womens Ultrasound suprvsn of normal 1-201 Joselin. [facility] [place], , first 7 700 PO Box weeks Medical 1522, gestation of [facility], Eduardo Melvin, 120, , [place], [place], tel:[phone] , [place]. tel: [phone] Leonel [place] Vaginal Discharge Nov-3 Bassett Referring In Womens or LesionPap 0-201 Joselin. Provider: Health ALLIE, Smear Screening, 7 700 Joselin Bassett PO Box CervixEncounter Medical K, 700 1522, for suprvsn of [facility], normal , Dr [facility] Dr MÉNDEZ, second 120, Eduardo 120, [id number], [email or web address] weeks [place], gestation of [place], tel: [phone]. , [place]. tel: tel: [phone] Leonel [place] Qualitative Oct-2 Bassett Referring In Womens platelet 3-201 Joselin. Provider: Health ALLIE, defectsQualitativ 5 700 Joselin Bassett PO Box e platelet Medical K, 700 1522, [facility]Postpartum [facility], [facility], , [facility] Dr MÉNDEZ, Routine 120, Eduardo 120, [id number], [place], [place], tel: [phone]. , [place]. tel: tel: [phone] [place] Tito-2 Bassett Referring In Womens 1-201 Joselin. Provider: Health ALLIE, 5 700 Joselin Bassett PO Box Medical K, 700 1522, [address], [facility] [place], 120, Eduardo 120, [id number], [place], [place], [place], tel:[phone]. , [place]. tel: tel: [phone] Leonel [place] Bassett In Womens 7-201 Joselin. Health [place], 5 700 PO Box Medical 1522, [address] [place], [facility] [place], 120, [id number], [facility] [place], tel:[phone] , [place]. tel: [phone] Leonel [place] Jun- Bassett In Womens 6-201 Joselin. Health [place], 5 700 PO Box Medical [address], [address] [place], [facility] [place], 120, [id number], [facility] [place], tel:[phone] , [place]. tel: [phone] Family History Family Member Diagnosis Age At [...] Insurance type Covered constitution party ID Authorization(s) [facility] - [id number] Medicaid [employer] - [id number] Medicaid [facility] [id number] Medicaid [employer] [facility] [place] [id number] Medicaid Social History Type Description Quantity Date Captured Alcohol Use Details No Caffeine Use Details Unknown Tobacco Use Status Smoking Status Former smoker Vital Signs Date / Height Weight BMI Pulse Blood Temperature Respiratory Body Head BMI Time: Rate Pressure Rate Surface Circumference percentile Area 147.80 25.9 121/70 -2018 lbs 3 mm[Hg] 4:00 kg/m PM eter (2) Chief Complaint And Reason For Visit Unknown Chief Complaint And Reason For Visit Reason For Referral Reason For Referral Unknown Plan Of Care Date Type Action Status Appointment Darya Salmon BOOKED Appointment Darya Salmon BOOKED Future Order: Radiology Order Complete OB Ultrasound > 14 Ordered Weeks ([id number]) Future Order: Radiology Order Nuchal Translucency ([id number]) Ordered Future Order: Lab Order Pap Smear [...]
--- OUTSIDE RECORDS SUMMARY | 2017-11-21 05:54 | External Medical Summary | Continuity of Care Document ---
:1990 Author Organization [facility] Address [address] [place], [place] [id number] Phone Care Team Providers Name Role Phone Maribel Aicha BAILEY Unavailable Unavailable Allergies, Adverse Reactions, Alerts Substance Reaction Severity Status nitrofurantoin sick to stomach Unknown Active sulfamethoxazole dizzy, nausea, vomiting Unknown Active trimethoprim Unknown Active Medications Medication Instructions Dosage Effective Dates Status Comments (start - stop) 19 29 mg chew 1 tablet by Not Available - Active iron-1 mg oral route every chewable tablet day clindamycin 2 % insert 1 100 MG - No Longer vaginal cream applicatorful by Active vaginal route every day at bedtime for 7 nights Problems Condition Effective Dates (start - stop) Clinical Status Qualitative platelet defects Qualitative platelet defects Follow-Up, Routine - Vaginal Discharge or Lesion - Pap Smear Screening, Cervix - Encounter for suprvsn of normal - , second trimester 11 weeks gestation of - Encounter for suprvsn of normal - , first trimester 13 weeks gestation of - Encounter for suprvsn of normal - , first trimester 13 weeks gestation of - Active Procedures Procedure Date Unknown Results Test Name Date and Time Measure Units Reference Range Abnormal Flag Comments Unknown Advance Directives Directive Yes / No Effective Date File Name Unknown Encounters Encounter Practice Location Reason(s) Diagnoses Date Provider Care Team Description For Visit Members Leonel [place] Encounter for Bassett In Aunt Group suprvsn of normal 1-201 [facility] [place], , first 7 700 [address] [id number] weeks Medical 1522, gestation of [facility], Eduardo Melvin, 120, [id number], [place], [place], tel:[phone] , [place]. tel: [phone] Leonel [place] Encounter for Dec-1 Bassett In Womens Ultrasound suprvsn of normal 1-201 Joselin. Health ALLIE, , first 7 700 PO Box weeks Medical 1522, gestation of [facility], Eduardo Melvin, 120, [id number], [place], [place], tel:[phone] , [place]. tel: [phone] Leonel [place] Dec-0 Bassett In Womens 1-201 Joselin. Health ALLIE, 7 700 PO Box Medical 1522, [facility], Eduardo Melvin, 120, [id number], [place], [place], tel:[phone] , [place]. tel: [phone] Leonel [place] Vaginal Discharge Nov-3 Bassett Referring In Womens or LesionPap 0-201 Joselin. Provider: Health ALLIE, Smear Screening, 7 700 Joselin Bassett PO Box CervixEncounter Medical K, 700 1522, for suprvsn of [facility], normal , , [facility] Dr MÉNDEZ, second 120, Eduardo 120, [id number], [email or web address] weeks [place], gestation of [place], tel:[phone]. , [place]. tel: tel: [phone] Leonel [place] Qualitative Oct-2 Bassett Referring In Womens platelet 3-201 Joselin. Provider: Health ALLIE, defectsQualitativ 5 700 Joselin Bassett PO Box e platelet Medical K, 700 1522, defectsPostpartum [facility], Follow-Up, , [facility] Dr MÉNDEZ, Routine 120, Eduardo 120, [id number], [place], [place], tel:[phone]. , [place]. tel: tel: [phone] Leonel [place] Tito-2 Bassett Referring In Womens 1-201 Joselin. Provider: Health ALLIE, 5 700 Joselin Basstet PO Box Medical K, 700 1522, [place] [address], [facility] Dr [place], 120, Eduardo 120, [id number], [place], [place], tel:[phone]. , [place]. tel: tel: [phone] Leonel [place] Bassett In Womens 7-201 Joselin. Health PA, 5 700 PO Box Medical 1522, [place] [address] [place], [place], 120, [id number], [place], tel:[phone] , [place]. tel: [phone] Leonel [place] Bassett In Womens 6-201 Joselin. Health PA, 5 700 PO Box Medical 1522, [place] [address] Talon, [place], 120, [id number], [facility] [place], tel: [phone] , [place]. tel: [phone] Family History Family Member Diagnosis Age At [...] Provider Payers Payer name Insurance type Covered libertarian ID Authorization(s) [facility] - [id number] Medicaid [employer] [place] [id number] Medicaid [employer] [facility] - [id number] Medicaid [employer] [facility] [place] [id number] Medicaid Social History Type Description Quantity Date Captured Unknown Vital Signs Date / Height Weight BMI Pulse Blood Temperature Respiratory Body Head BMI Time: Rate Pressure Rate Surface Circumference percentile Area Unknown Chief Complaint And Reason For Visit Unknown Chief Complaint And Reason For Visit Reason For Referral Reason For Referral Unknown Plan Of Care Date Type Action Status Appointment Darya Salmon BOOKED Future Order: Radiology Order Nuchal Translucency ([id number]) Ordered Future Order: Lab Order Pap Smear [...]
--- OUTSIDE RECORDS SUMMARY | 2017-11-21 05:54 | External Medical Summary | Continuity of Care Document ---
:1990 Author Organization [facility] [facility] Address [address] [place], [place] [id number] Phone Care Team Providers Name Role Phone [...] oth or susp poor fetl - grth, third tri, unsp Low Lying Placenta Nos Or W/out - Hemorrhage, Third Trimester 31 weeks gestation of - Encounter for suprvsn of normal - , second trimester 24 weeks gestation of - Qualitative platelet defects Qualitative platelet defects Follow-Up, Routine - Vaginal Discharge or Lesion - Pap Smear Screening, Cervix - Encounter for suprvsn of normal - , second trimester 11 weeks gestation of - Vaginal Discharge or Lesion - Encounter for suprvsn of normal - , third trimester 33 weeks gestation of - Matern care for oth or susp poor fetl - grth, 2nd tri, unsp Low Lying Placenta Nos Or W/out - Hemorrhage, Second Trimester Anemia complicating , second - trimester 27 weeks gestation of - Matern care for [...] Encounter for suprvsn of normal - , third trimester 31 weeks gestation of - Active Procedures Procedure Date Ultrasnd preg uterus, flwup/repeat Results Test Name Date and Time Measure Units Reference Range Abnormal Flag Comments Unknown Advance Directives Directive Yes / No Effective Date File Name Unknown Encounters Encounter Practice Location Reason(s) Diagnoses Date Provider Care Team Description For Visit Members Leonel [place] Vaginal Discharge May-0 Bassett In Womens or 2-201 Joselin. Health ALLIE, LesionEncounter 8 700 PO Box for suprvsn of Medical 1522, normal , [facility], third [id number] Eduardo Melvin, weeks gestation 120, , [facility] [place], tel: [phone] [facility] , [place]. tel: [phone] Leonel [place] Encounter for Apr-1 Bassett In Womens suprvsn of normal 8-201 Joselin. Health [place], , third 8 700 PO Box [email or web address] weeks Medical 1522, gestation of [facility], Eduardo Melvin, 120, , [place], tel:[phone] , [place]. tel: [phone] Leonel [place] Matern care for Apr-1 Bassett In Womens Ultrasound oth or susp poor 8-201 Joselin. Health PA, fetl grth, third 8 700 PO Box tri, unspLow Medical 1522, [facility] [place], Nos Or W/out Eduardo Melvin, Hemorrhage, Third 120, [id number], [id number] weeks [place], gestation of [place], tel:[phone] , [place]. tel: [phone] Associates [place] Low Lying Apr-0 Bassett In Womens Placenta Nos Or 3-201 Joselin. Health PA, W/out Hemorrhage, 8 700 PO Box Third [id number] Medical 1522, weeks gestation Center [place], of Eduardo Melvin, 120, , [place], [place], tel:[phone] , [place]. tel: [phone] Leonel [place] Matern care for Mar-1 Sobbing In Womens oth or susp poor 9-201 [place]. [facility] PA, fetl grth, 2nd 8 700 PO Box tri, unspLow Medical 1522, [facility] [place], Nos Or W/out Drive, [place], Hemorrhage, Suite , Second 120, [place] TrimesterAnemia [place], tel: complicating [place], , second [id number], [email or web address] weeks [place]. gestation of tel: [phone] Leonel [place] Encounter for Feb-2 Bassett In Womens suprvsn of normal 6-201 Joselin. Health [place], , second 8 700 PO Box [id number] weeks Medical 1522, gestation of [facility], Eduardo Melvin, 120, , [place], [place], tel:[phone] , [place]. tel: [phone] Leonel [place] Low Lying Travon-2 Bassett In Womens Placenta Nos Or 9-201 Joselin. Health PA, W/out Hemorrhage, 8 700 PO Box Second Medical 1522, [id number] weeks Roby Talon, gestation of Eduardo Melvin, 120, [id number], [place], tel:[phone] , [place]. tel:[phone] Leonel [place] Matern care for Travon-2 Bassett In Womens Ultrasound oth or susp poor 9-201 Joselin. Health PA, fetl grth, 2nd 8 700 PO Box tri, [email or web address] weeks Medical 1522, gestation of [facility] Eduardo Melvin, 120, , [place], [place], tel:[phone] , [place]. tel:[phone] Leonel [place] Matern care for Travon-0 Bassett In Womens oth or susp poor 8-201 Joselin. Health [place], fetl grth, 2nd 8 700 PO Box tri, [email or web address] weeks Medical 1522, gestation of [facility] Eduardo Melvin, 120, [id number], [facility] [place], tel:[phone] , [place]. tel: [phone] Leonel [place] Dec-2 Bassett In Womens 7-201 Joselin. Health PA, 7 700 PO Box Medical 1522, [facility], Eduardo Melvin, 120, [id number], [facility] [place], tel:[phone] , [place]. tel: [phone] Leonel [place] Encounter for Dec-1 Bassett In Womens suprvsn of normal 1-201 Jos[place]. Health [place], , first 7 700 PO Box weeks Medical 1522, gestation of [facility], Eduardo Melvin, 120, [id number], [facility] [place], tel:[phone] , [place]. tel:[phone] Leonel [place] Encounter for Dec-1 Bassett In Womens Ultrasound suprvsn of normal 1-201 Jos[place]. Health [place], , first 7 700 PO Box [id number] weeks Medical 1522, gestation of [facility], Eduardo Melvin, 120, [id number], [facility] [place], tel:[phone] , [place]. tel: [phone] eLonel [place] Vaginal Discharge Nov-3 Bassett Referring In Womens or LesionPap 0-201 Joselin. Provider: Mu KELLEY, Smear Screening, 7 700 Joselin Bassett PO Box [facility] Medical K, 700 1522, for suprvsn of [facility] Talon, normal , , [facility] Dr MÉNDEZ, second 120, Eduardo 120, [id number], [email or web address] weeks [place], gestation of [place], [place], tel: [phone]. , [place]. tel: tel: [phone] Leonel Mcintosh Mar- Bassett Referring In Womens platelet 3-201 Joselin. Provider: Mu KELLEY, defectsQualitativ 5 700 Joselin Bassett PO Box e platelet Medical K, 700 1522, defectsPostpartum [facility] [place], Follow-Up, , [facility] Dr MÉNDEZ, Routine 120, Eduardo 120, , [place], [place], tel: [phone]. , [place]. tel: tel: [phone] Leonel [place] Dec- Bassett Referring In Womens 1-201 Joselin. Provider: Mu KELLEY, 5 700 Joselin Bassett PO Box Medical K, 700 1522, [address], [facility] Dr MÉNDEZ, 120, Eduardo 120, , [place], [place], tel: [phone]. , [place]. tel: tel: [phone] Leonel [place] Jul-2 Bassett In Womens 7-201 Joselin. Mu KELLEY, 5 700 PO Box Medical 1522, [address] Dr Talon, Eduardo HNOEY, 120, [id number], [facility] [place], tel:[phone] , [place]. tel: [phone] Leonel [place] Jun-0 Bassett In Womens 6-201 Joselin. Mu KELLEY, 5 700 PO Box Medical 1522, [address] Dr Talon, Eduardo MÉNDEZ, 120, [id number], [place], [place], tel:[phone] , [place]. tel:[phone] Family History Family Member Diagnosis Age At Onset No family history of Venous Thrombosis No family history of Colon Cancer Maternal Grandmother Diabetes mellitus No family history of Pulmonary Embolism No family history of Ovarian Cancer No family history of Uterine Cancer No family history of Breast Cancer Immunizations Vaccine Date Status Comments Tdap completed Source: New Immunization Record Influenza, injectable, completed Source: New Immunization Record [...] name Insurance type Covered libertarian ID Authorization(s) [facility] [id number] Medicaid [employer] [place] [id number] [place] [employer] - [place] [id number] Medicaid [employer] [facility] [place] [id number] Medicaid [employer] [facility] [place] [id number] Medicaid Social History Type Description Quantity Date [...] Darya Salmon BOOKED Future Order: Radiology Order Ultrasound OB Follow-up ([id number]) Ordered Future Order: Radiology Order Complete OB Ultrasound > 14 Ordered Weeks ([id number]) Future Order: Radiology Order Nuchal Translucency ([id number]) Ordered Future Order: Lab Order Pap Smear [...]
--- OUTSIDE RECORDS SUMMARY | 2017-11-21 05:54 | External Medical Summary | Continuity of Care Document ---
:1990 Author Organization [facility] Address [address] [place], [place] [id number] Phone Care Team Providers Name Role Phone [...] Members Leonel [place] Encounter for Bassett In PENRITH suprvsn of normal 1-201 [facility] [email or web address] [place], , first 7 700 PO Box [email or web address] weeks Medical 1522, gestation of [facility], Eduardo Melvin, 120, [id number], [place], tel:[phone] , [place]. tel: [phone] Leonel [place] Encounter for Dec-1 Bassett In Womens Ultrasound suprvsn of normal 1-201 Joselin. Health ALLIE, , first 7 700 PO Box [id number] weeks Medical 1522, gestation of [facility], Eduardo Melvin, 120, [id number], [place], tel:[phone] , [place]. tel: [phone] Leonel [place] Dec-0 Bassett In Womens 1-201 Joselin. Health ALLIE, 7 700 PO Box Medical 1522, [facility], Eduardo Melvin, 120, [id number], [place], tel:[phone] , [place]. tel: [phone] Leonel [place] Vaginal Discharge Nov-3 Bassett Referring In Womens or LesionPap 0-201 Joselin. Provider: Health ALLIE, Smear Screening, 7 700 Joselin Bassett PO Box CervixEncounter Medical K, 700 1522, for suprvsn of [facility], normal , , [facility] Dr MÉNDEZ, second 120, Eduardo 120, [id number], [id number] weeks [place], gestation of [place], [place], tel:+ [phone]. , [place]. tel: tel: [phone] Leonel [place] Qualitative Oct-2 Bassett Referring In Womens platelet 3-201 Joselin. Provider: Health ALLIE, defectsQualitativ 5 700 Joselin Bassett PO Box e platelet Medical K, 700 1522, defectsPostpartum [facility], Follow-Up, , [facility] Dr MÉNDEZ, Routine 120, Eduardo 120, [id number], [place], [place], tel:[phone]. , [place]. tel: tel: [phone] Leonel [place] Tito-2 Bassett Referring In Womens 1-201 Joselin. Provider: Health ALLIE, 5 700 Joselin Bassett PO Box Medical K, 700 1522, [place] [address], [facility] Dr [place], 120, Eduardo 120, [id number], [place], [place], [place], tel:[phone]. , [place]. tel: tel: [phone] Leonel [place] Bassett In Womens 7-201 Joselin. Health PA, 5 700 PO Box Medical 1522, [place] Dr Talon, Edu[place], 120, [id number], [place], tel:[phone] , [place]. tel: [phone] Leonel [place] Bassett In Womens 6-201 Joselin. Health PA, 5 700 PO Box Medical 1522, [place] Dr Talon, Eduardo [place], 120, [id number], [facility] [place], tel: [phone] , [place]. tel: [phone] Family History Family Member Diagnosis Age At [...] Provider Payers Payer name Insurance type Covered green party ID Authorization(s) [facility] - [id number] Medicaid [employer] [place] [id number] Medicaid [employer] - [id number] Medicaid [employer] [facility] [place] [id number] Medicaid Social History Type Description Quantity Date [...] BOOKED Future Order: Radiology Order Nuchal Translucency ([id number]) Ordered Future Order: Lab Order Pap Smear [...]
--- OUTSIDE RECORDS SUMMARY | 2017-11-21 05:54 | External Medical Summary | Continuity of Care Document ---
:1992 Author Organization [email or web address] Address [address] [place], [place] [address] Phone Care Team Providers Name Role Phone [...] tri, unsp 20 weeks gestation of - Matern care for oth or susp poor fetl - grth, third tri, unsp Low Lying Placenta Nos Or W/out - Hemorrhage, Third Trimester 31 weeks gestation of - Low Lying Placenta [...] For Visit Members Leonel [place] Encounter for Apr-1 Bassett In Womens suprvsn of normal 8-201 Jos[place]. Health [place], , third 8 700 PO Box [id number] weeks Medical 1522, gestation of [facility], Eduardo Melvin, 120, , [facility] [place], tel:[phone] , [place]. tel: [phone] Leonel [place] Matern care for Apr-1 Bassett In Womens Ultrasound oth or susp poor 8-201 Joselin. Health PA, fetl grth, third 8 700 PO Box tri, unspLow Medical 1522, [facility] [place], Nos Or W/out Eduardo Melvin, Hemorrhage, Third 120, [id number], [id number] weeks [place], gestation of [place], tel: [phone] , [place]. tel: [phone] Leonel [place] Low Lying Apr-0 Bassett In Womens Placenta Nos Or 3-201 Joselin. Health PA, W/out Hemorrhage, 8 700 PO Box Third [id number] Medical 1522, weeks gestation [facility], of Eduardo Melvin, 120, , [place], tel:[phone] , [place]. tel: [phone] Leonel [place] Matern care for Mar-1 Sobbing In Womens oth or susp poor 9-201 [place], fetl grth, 2nd 8 700 PO Box tri, unspLow Medical 1522, Lying Placenta [facility], Nos Or W/out [address], [place], Hemorrhage, [address] [id number], Second 120, [place] TrimesterAnemia [place], tel:[phone] complicating [place], , second [id number], weeks [place]. gestation of tel: [phone] Leonel [place] Encounter for Feb-2 Bassett In Womens suprvsn of normal 6-201 Joselin. Health PA, , second 8 700 PO Box [email or web address] weeks Medical 1522, gestation of [facility], Eduardo Melvin, 120, [id number], [place], tel:[phone] , [place]. tel: [phone] Leonel [place] Low Lying Travon-2 Bassett In Womens Placenta Nos Or 9-201 Joselin. Health PA, W/out Hemorrhage, 8 700 PO Box Second Medical 1522, [email or web address] weeks [facility], gestation of Eduardo Melvin, 120, , [place], tel:[phone] , [place]. tel: [phone] Leonel [place] Matern care for Travon-2 Bassett In Womens Ultrasound oth or susp poor 9-201 Joselin. Health PA, fetl grth, 2nd 8 700 PO Box tri, [email or web address] weeks Medical 1522, gestation of [facility], Eduardo Melvin, 120, [id number], [place], tel:[phone] , [place]. tel: [phone] Leonel [place] Matern care for Travon-0 Bassett In Womens oth or susp poor 8-201 Joselin. Health ALLIE, fetl grth, 2nd 8 700 PO Box tri, [email or web address] weeks Medical 1522, gestation of [facility], Eduardo Melvin, 120, [id number], [place], tel:[phone] , [place]. tel: [phone] Leonel [place] Dec-2 Bassett In Womens 7-201 Joselin. Health ALLIE, 7 700 PO Box Medical 1522, [facility], Eduardo Melvin, 120, [id number], [place], tel:[phone] , [place]. tel: [phone] Leonel [place] Encounter for Dec-1 Bassett In Womens suprvsn of normal 1-201 Joselin. Health ALLIE, , first 7 700 PO Box weeks Medical 1522, gestation of [facility], Eduardo Melvin, 120, [id number], [place], tel:[phone] , [place]. tel: [phone] Leonel [place] Encounter for Dec-1 Bassett In Womens Ultrasound suprvsn of normal 1-201 Joselin. Health ALLIE, , first 7 700 PO Box [id number] weeks Medical 1522, gestation of [facility], Eduardo Melvin, 120, [id number], [place], tel:[phone] , [place]. tel: [phone] Leonel [place] Vaginal Discharge Nov-3 Bassett Referring In Womens or LesionPap 0-201 Joselin. Provider: Health ALLIE, Smear Screening, 7 700 Joselin Bassett PO Box CervixEncounter Medical K, 700 1522, for suprvsn of [facility], normal , Dr [facility] Dr MÉNDEZ, second 120, Eduardo 120, [id number], [id number] weeks [place], gestation of [place], [place], tel:[phone]. , [place]. tel: tel: [phone] Leonel [place] Qualitative Oct-2 Bassett Referring In Womens platelet 3-201 Joselin. Provider: Health ALLIE, defectsQualitativ 5 700 Joselin Bassett PO Box e platelet Medical K, 700 1522, defectsPostpartum [place] Renae [place], Follow-Up, , [facility] Dr MÉNDEZ, Routine 120, Eduardo 120, [id number], [place], [place], [place], tel:[phone]. , [place]. tel: tel: [phone] Leonel [place] Bassett Referring In Womens 1-201 Joselin. Provider: Mu KELLEY, 5 700 Joselin Bassett PO Box Medical K, 700 1522, [place] [address], [facility] Dr MÉNDEZ, 120, Eduardo 120, [id number], [place], [place], [place], tel:[phone]. , [place]. tel: tel: [phone] Leonel [place] Jul- Bassett In Womens 7-201 Joselin. Mu KELLEY, 5 700 PO Box Medical 1522, [place] [address] Talon, [facility] [place], 120, [id number], [place], tel: [phone] , [place]. tel: [phone] Leonel [place] Jun- Bassett In Womens 6-201 Joselin. Mu KELLEY, 5 700 PO Box Medical 1522, [place] [address] Talon, [facility] [place], 120, [id number], [place], tel: [phone] , [place]. tel: [phone] Family History Family Member Diagnosis Age At [...] Insurance type Covered alliance party ID Authorization(s) [facility] [id number] Medicaid [employer] [place] [id number] [place] [employer] [place] [id number] Medicaid [employer] [facility] [place] [id number] Medicaid [employer] [place] [id number] Medicaid Social History Type Description Quantity Date Captured Alcohol Use Details No Caffeine Use Details Unknown Tobacco Use Status Smoking Status Former smoker Vital Signs Date / Height Weight BMI Pulse Blood Temperature Respiratory Body Head BMI Time: Rate Pressure Rate Surface Circumference percentile Area 149.40 26.2 131/71 -2018 lbs 1 mm[Hg] 1:54 kg/m PM eter (2) 259 3 1:48 kg/m PM eter (2) Chief Complaint And Reason For Visit Unknown Chief Complaint And Reason For Visit Reason For Referral Reason For Referral Unknown Plan Of Care Date Type Action Status Appointment Darya Salmon BOOKED Future Order: Radiology Order Complete OB Ultrasound > 14 Ordered Weeks ([id number]) Future Order: Radiology Order Ultrasound OB Follow-up ([id number]) Ordered Future Order: Radiology Order Nuchal Translucency ([id number]) Ordered Future Order: Lab Order Pap Smear [...]
--- OUTSIDE RECORDS SUMMARY | 2017-11-21 05:54 | External Medical Summary | Continuity of Care Document ---
:1990 Author Organization [facility] Address [address] [place], [place] [id number] Phone Care Team Providers Name Role Phone [...] tri, unsp 17 weeks gestation of - Encounter for suprvsn [...] Team Description For Visit Members Leonel [place] Matern care for Travon-0 Bassett In Womens oth or susp poor 8-201 Joselin. Health PA, fetl grth, 2nd 8 700 PO Box tri, [email or web address] weeks Medical 1522, gestation of [facility], Eduardo Melvin, 120, [id number], [place], tel:[phone] , [place]. tel: [phone] Leonel [place] Dec-2 Bassett In Womens 7-201 Joselin. Health PA, 7 700 PO Box Medical 1522, [facility], Eduardo Melvin [place], 120, [id number], [place], tel:[phone] , [place]. tel: [phone] Leonel [place] Encounter for Dec-1 Bassett In Womens suprvsn of normal 1-201 Joselin. Health PA, , first 7 700 PO Box [email or web address] weeks Medical 1522, gestation of [facility], Eduardo Melvin, 120, , [place], tel:[phone] , [place]. tel: [phone] Leonel [place] Encounter for Dec-1 Bassett In Womens Ultrasound suprvsn of normal 1-201 Joselin. Health PA, , first 7 700 PO Box [email or web address] weeks Medical 1522, gestation of [facility], Eduardo Melvin, 120, [id number], [place], tel:[phone] , [place]. tel: [phone] Leonel [place] Vaginal Discharge Nov-3 Bassett Referring In Womens or LesionPap 0-201 Joselin. Provider: Health PA, Smear Screening, 7 700 Joselin Bassett PO Box CervixEncounter Medical K, 700 1522, for suprvsn of [facility], normal , , [facility] Dr MÉNDEZ, second 120, Eduardo 120, [id number], [email or web address] weeks [place], gestation of [place], [place], tel:[phone]. , [place]. tel: tel: [phone] Leonel [place] Qualitative Oct-2 Bassett Referring In Womens platelet 3-201 Joselin. Provider: Health PA, defectsQualitativ 5 700 Joselin Bassett PO Box e platelet Medical K, 700 1522, defectsPostpartum Steward Renae Hanley, Follow-Up, , [facility] Dr MÉNDEZ, Routine 120, Eduardo 120, [id number], [place], [place], tel:[phone]. , [place]. tel: tel: [phone] Leonel [place] Bassett Referring In Womens 1-201 Joselin. Provider: Mu KELLEY, 5 700 Joselin Bassett PO Box Medical K, 700 1522, Steward [address], [facility] Dr MÉNDEZ, 120, Eduardo 120, [id number], [place], [place], tel:[phone]. , [place]. tel: tel: [phone] Leonel [place] Bassett In Womens 7-201 Joselin. Mu KELLEY, 5 700 PO Box Medical 1522, [address] Talon, [place], 120, [id number], [place], tel: [phone] , [place]. tel: [phone] Leonel [place] Bassett In Womens 6-201 Joselin. Mu KELLEY, 5 700 PO Box Medical 1522, [address] Talon, [place], 120, [id number], [place], tel: [phone] , [place]. tel: [phone] Family History Family Member Diagnosis Age At [...] Provider Payers Payer name Insurance type Covered republican ID Authorization(s) [facility] - [id number] Medicaid [employer] [facility] [place] [id number] Medicaid [facility] [facility] - [id number] Medicaid [facility] [place] [id number] Medicaid Social History Type Description Quantity Date [...] BOOKED Future Order: Radiology Order Nuchal Translucency ([id number]) Ordered Future Order: Lab Order Pap Smear [...]
--- OUTSIDE RECORDS SUMMARY | 2017-11-21 05:54 | External Medical Summary | Continuity of Care Document ---
:1992 Author Organization [facility] Address [address] [place], [place] [address] Phone Care Team Providers Name Role Phone Maribel Aicha BAILEY Unavailable Unavailable Allergies, Adverse Reactions, Alerts Substance Reaction Severity Status nitrofurantoin sick to stomach Unknown Active sulfamethoxazole dizzy, nausea, vomiting Unknown Active trimethoprim Unknown Active Medications Medication Instructions Dosage Effective Dates Status Comments (start - stop) ferrous sulfate 325 take 1 tablet by 325 MG - Active mg (65 mg iron) ORAL route 2 times tablet every day clindamycin 2 % insert 1 100 MG - Active vaginal cream applicatorful by vaginal route every day at bedtime for 7 nights 19 29 mg chew 1 tablet by Not Available - Active iron-1 mg chewable oral route every tablet day Problems Condition Effective Dates (start - stop) Clinical Status Encounter for suprvsn of normal - , first trimester 13 weeks gestation of - Qualitative platelet defects Qualitative platelet defects Follow-Up, Routine - Vaginal Discharge or Lesion - Pap Smear Screening, Cervix - Encounter for suprvsn of normal - , second trimester 11 weeks gestation of - Encounter for suprvsn of normal - , first trimester 13 weeks gestation of - Active Procedures Procedure Date Ultrasound, Nuchal Translucency Measurement Results Test Name Date and Time Measure Units Reference Range Abnormal Flag Comments Unknown Advance Directives Directive Yes / No Effective Date File Name Unknown Encounters Encounter Practice Location Reason(s) Diagnoses Date Provider Care Team Description For Visit Members Leonel [place] Dec-2 Bassett In Womens 7-201 Joselin. Mu KELLEY, 7 700 PO Box Medical 1522, [address] Talon, [facility] [place], 120, [id number], [place], tel:[phone] , [place]. tel: [phone] Leonel [place] Encounter for Dec-1 Bassett In Womens suprvsn of normal 1-201 Joselin. Mu KELLEY, , first 7 700 PO Box [email or web address] weeks Medical 1522, gestation of [facility], Eduardo Melvin, 120, [id number], [place], tel: [phone] , [place]. tel: [phone] Leonel [place] Encounter for Dec-1 Bassett In Womens Ultrasound suprvsn of normal 1-201 Joselin. Mu KELLEY, , first 7 700 PO Box [email or web address] weeks Medical 1522, gestation of [facility], Eduardo Melvin, 120, [id number], [place], tel:[phone] , [place]. tel: [phone] Leonel [place] Dec-0 Bassett In Womens 1-201 Joselin. Mu KELLEY, 7 700 PO Box Medical 1522, [address] Talon, [place], 120, [id number], [place], tel:[phone] , [place]. tel: [phone] Leonel [place] Vaginal Discharge Nov-3 Bassett Referring In Womens or LesionPap 0-201 Joselin. Provider: Mu KELLEY, Smear Screening, 7 700 Joselin Bassett PO Box [facility] K, 700 1522, for suprvsn of [facility] Talon, normal , , [facility] Dr MÉNDEZ, second 120, Eduardo 120, [id number], [id number] weeks [place], gestation of [place], [place], tel:[phone]. , [place]. tel: tel: [phone] Leonel [place] Qualitative Oct-2 Bassett Referring In Womens platelet 3-201 Joselin. Provider: Health PA, defectsQualitativ 5 700 Joselin Bassett PO Box e platelet Medical K, 700 1522, defectsPostpartum [facility] Talon, Follow-Up, , [facility] Dr MÉNDEZ, Routine 120, Eduardo 120, [id number], [place], [place], [place], tel:[phone]. , [place]. tel: tel: [phone] Leonel [place] Bassett Referring In Womens 1-201 Joselin. Provider: Mu KELLEY, 5 700 Joselin Bassett PO Box Medical K, 700 1522, Kemmerer Renae Hanley, , [facility] Dr MÉNDEZ, 120, Eduardo 120, [id number], [place], [place], tel:[phone]. , [place]. tel: tel: [phone] Leonel [place] Bassett In Womens 7-201 Joselin. Mu KELLEY, 5 700 PO Box Medical 1522, [address] Talon, [facility] [place], 120, [id number], [place], tel: [phone] , [place]. tel: [phone] Leonel [place] Bassett In Womens 6-201 Joselin. Mu KELLEY, 5 700 PO Box Medical 1522, [address] Talon, [facility] [place], 120, [id number], [place], tel: [phone] , [place]. tel: [phone] Family History Family Member Diagnosis Age At [...] Provider Payers Payer name Insurance type Covered democrat ID Authorization(s) [facility] [id number] Medicaid [employer] [facility] [place] [id number] Medicaid [facility] [place] [id number] Medicaid [facility] [place] [id number] Medicaid Social History Type Description Quantity Date [...] BOOKED Future Order: Radiology Order Nuchal Translucency ([id number]) Ordered Future Order: Lab Order Pap Smear [...] nutrition and weight gain counseling, special diet Feb-27-2015 toxoplasmosis precautions (cats / raw meat) exercise [...]
--- OUTSIDE RECORDS SUMMARY | 2017-11-21 05:54 | External Medical Summary | Continuity of Care Document ---
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 Mu KELLEY, 7 700 PO Box Medical 1522, [address] [place], [place], 120, [id number], [place], tel:[phone] , [place]. tel: [phone] Leonel [place] Encounter for Dec-1 Bassett In Womens suprvsn of normal 1-201 Joselin. Mu KELLEY, , first 7 700 PO Box [email or web address] weeks Medical 1522, gestation of [facility], Eduardo Melvin, 120, [id number], [place], tel:[phone] , [place]. tel: [phone] Leonel [place] Encounter for Dec-1 Bassett In Womens Ultrasound suprvsn of normal 1-201 Joselin. Mu KELLEY, , first 7 700 PO Box [email or web address] weeks Medical 1522, gestation of [facility], Eduardo Melvin, 120, [id number], [place], tel:[phone] , [place]. tel: [phone] Leonel [place] Dec-0 Bassett In Womens 1-201 Joselin. Mu KELLEY, 7 700 PO Box Medical 1522, [address] [place], [place], 120, [id number], [place], tel:[phone] , [place]. tel: [phone] Leonel [place] Vaginal Discharge Nov-3 Bassett Referring In Womens or LesionPap 0-201 Joselin. Provider: Mu KELLEY, Smear Screening, 7 700 Joselin Bsasett PO Box [facility] Medical K, 700 1522, for suprvsn of [facility] Talon, normal , , [facility] Dr MÉNDEZ, second 120, Eduardo 120, [id number], [email or web address] weeks [place], gestation of [place], [place], tel:[phone]. , [place]. tel: tel: [phone] Leonel [place] Qualitative Oct-2 Bassett Referring In Womens platelet 3-201 Joselin. Provider: Mu KELLEY, defectsQualitativ 5 700 Joselin Bassett PO Box e platelet Medical K, 700 1522, defectsPostpartum [facility] Talon, Follow-Up, , [facility] Dr MÉNDEZ, Routine 120, Eduardo 120, [id number], [place], [place], tel:[phone]. , [place]. tel: tel: [phone] Leonel [place] Bassett Referring In Womens 1-201 Joselin. Provider: Mu KELLEY, 5 700 Joselin Bassett PO Box Medical K, 700 1522, [address], [facility] Dr MÉNDEZ, 120, Eduardo 120, [id number], [place], [place], tel:[phone]. , [place]. tel: tel: [phone] Leonel [place] Bassett In Womens 7-201 Joselin. Mu KELLEY, 5 700 PO Box Medical 1522, [address] Talon, [facility] [place], 120, [id number], [place], tel: [phone] , [place]. tel: [phone] Leonel [place] Bassett In Womens 6-201 Joselin. Mu KELLEY, 5 700 PO Box Medical 1522, [address] Talon, [facility] [place], 120, [id number], [place], tel: [phone] , [place]. tel: [phone] Family History Family Member Diagnosis Age At [...] name Insurance type Covered republican ID Authorization(s) [facility] - [id number] Medicaid [employer] [facility] [place] [id number] [place] [employer] [facility] [place] [id number] Medicaid [employer] [facility] [place] [id number] Medicaid Social History Type Description Quantity Date Captured Alcohol Use Details No Caffeine Use Details Unknown Tobacco Use Status Smoking Status Former smoker Vital Signs Date / Height Weight BMI Pulse Blood Temperature Respiratory Body Head BMI Time: Rate Pressure Rate Surface Circumference percentile Area 118.00 20.7 130/2017 lbs 0 mm[Hg] 2:30 kg/m PM eter (2) Chief Complaint And Reason For Visit Unknown Chief Complaint And Reason For Visit Reason For Referral Reason For Referral Unknown Plan Of Care Date Type Action Status Appointment Darya Salmon BOOKED Future Order: Radiology Order Nuchal Translucency ([id number]) Ordered Future Order: Lab Order Pap Smear [...]
[2017-11-21] MEDS ORDERED: LIDOCAINE 1% (10mg/ml) 2mL INJ PF SDV ID PRN (05:55)
[2017-11-21] MEDS ORDERED: METHYLERGONOVINE 0.2 MG/ML INJECTION IM PRN (05:55)
[2017-11-21] MEDS ORDERED: MAG-AL + SIM ORAL LIQUID 30ml PO PRN (05:55)
[2017-11-21] MEDS ORDERED: OXYTOCIN DRIP 30 UNIT/500 ML ML IV PRN (05:55)
[2017-11-21] MEDS ORDERED: CARBOPROST 250 MCG/ML INJECTION IM PRN (05:55)
[2017-11-21] MEDS ORDERED: CALCIUM CARBONATE Chewable 500mg TABLET PO PRN (05:55)
[2017-11-21] MEDS ORDERED: ACETAMINOPHEN 500 MG TABLET PO PRN (05:55)
--- OUTSIDE RECORDS SUMMARY | 2017-11-21 05:55 | External Medical Summary | Continuity of Care Document ---
:1992 Author Organization [facility] Address [address] [place], [place] [id number] Phone Care Team Providers Name Role Phone [...] tri, unsp 17 weeks gestation of - Qualitative platelet defects [...] 8 700 PO Box Second Medical 1522, [email or web address] weeks [facility], gestation of Eduardo Melvin, 120, , [place], tel:[phone] , [place]. tel: [phone] Leonel [place] Matern care for Travon-2 Bassett In Womens Ultrasound oth or susp poor 9-201 Joselin. Health ALLIE, fetl grth, 2nd 8 700 PO Box tri, unsp20 weeks Medical 1522, gestation of [facility] Eduardo Melvin, 120, , [place], [place], tel:[phone] , [place]. tel: [phone] Leonel [place] Matern care for Travon-0 Bassett In Womens oth or susp poor 8-201 Joselin. Health ALLIE, fetl grth, 2nd 8 700 PO Box tri, [email or web address] weeks Medical 1522, gestation of [facility] Eduardo Melvin, 120, , [place], [place], tel:[phone] , [place]. tel: [phone] Leonel [place] Dec-2 Bassett In Womens 7-201 Joselin. Health ALLIE, 7 700 PO Box Medical 1522, [facility], Eduardo Melvin, 120, [id number], [place], tel:[phone] , [place]. tel:[phone] Leonel [place] Encounter for Dec-1 Bassett In Womens suprvsn of normal 1-201 Joselin. Health ALLIE, , first 7 700 PO Box weeks Medical 1522, gestation of [facility] Eduardo Melvin, 120, [id number], [place], tel:[phone] , [place]. tel: [phone] Leonel [place] Encounter for May- Bassett In Womens Ultrasound suprvsn of normal 1-201 Joselin. Health ALLIE, , first 7 700 PO Box [email or web address] weeks Medical 1522, gestation of [facility], , Eduardo MÉNDEZ, 120, [id number], [place], [place], tel:[phone] , [place]. tel: [phone] Leonel [place] Vaginal Discharge Nov- Bassett Referring In Womens or LesionPap 0-201 Joselin. Provider: Mu KELLEY, Smear Screening, 7 700 Joselin Bassett PO Box CervixEncounter Medical K, 700 1522, for suprvsn of [facility], normal , , [facility] Dr MÉNDEZ, second 120, Eduardo 120, [id number], [email or web address] weeks [place], gestation of [place], [place], tel: [phone]. , [place]. tel: tel: [phone] Leonel [place] Qualitative Bassett Referring In Womens platelet 3-201 Joselin. Provider: Mu KELLEY, defectsQualitativ 5 700 Joselin Bassett PO Box e platelet Medical K, 700 1522, defectsPostpartum [facility], Follow-Up, , [facility] Dr MÉNDEZ, Routine 120, Eduardo 120, [id number], [place], [place], tel: [phone]. , [place]. tel: tel: [phone] Leonel [place] Dec- Bassett Referring In Womens 1-201 Joselin. Provider: Mu KELLEY, 5 700 Joselin Bassett PO Box Medical K, 700 1522, [facility], , [facility] [address] MÉNDEZ, 120, Eduardo 120, , [place], [place] MÉNDEZ, tel:[phone]. , [place]. tel: tel: [phone] Leonel [place] Jul- Bassett In Womens 7-201 Joselin. Health ALLIE, 5 700 PO Box Medical 1522, [place] [address] Talon, [facility] [place], 120, [id number], [facility] [place], tel:[phone] , . tel: [phone] Leonel [place] Bassett In Womens 6-201 Joselin. [facility], 5 700 PO Box Medical 1522, [address] Talon, Edu[place], 120, [id number], [facility] [place], tel:[phone] , [place]. tel: [phone] Family History Family Member Diagnosis Age At [...] name Insurance type Covered republican ID Authorization(s) [facility] [id number] Medicaid [employer] [facility] [place] [id number] Medicaid [facility] [facility] [place] [id number] Medicaid [employer] [facility] [place] [id number] Medicaid Social History Type Description Quantity Date Captured Alcohol Use Details No Caffeine Use Details Unknown Tobacco Use Status Smoking Status Former smoker Vital Signs Date / Height Weight BMI Pulse Blood Temperature Respiratory Body Head BMI Time: Rate Pressure Rate Surface Circumference percentile Area .7 0 4:02 kg/m PM eter (2) 126.10 22.1 110/69 -2018 lbs 2 mm[Hg] 4:09 kg/m PM eter (2) Chief Complaint And Reason For Visit Unknown Chief Complaint And Reason For Visit Reason For Referral Reason For Referral Unknown Plan Of Care Date Type Action Status Appointment Luis Antonio Darya BOOKED Future Order: Radiology Order Complete OB Ultrasound > 14 Ordered Weeks ([id number]) Future Order: Radiology Order Nuchal Translucency ([id number]) Ordered Future Order: Lab Order Pap Smear [...]
--- OUTSIDE RECORDS SUMMARY | 2017-11-21 05:55 | External Medical Summary | Continuity of Care Document ---
:1990 Author Organization [facility] Address [address] [place], [place] [phone] Phone Care Team Providers Name Role Phone [...] third trimester 31 weeks gestation of - Encounter for [...] gestation of - Active Procedures Procedure Date Immuniz admnin, 1 vac, sngl/combo 19 Yrs + TDAP VACCINE >7 IM OB Visit No Charge Results Test Name Date and Time Measure Units Reference Range Abnormal Flag Comments Unknown Advance Directives Directive Yes / No Effective Date File Name Unknown Encounters Encounter Practice Location Reason(s) Diagnoses Date Provider Care Team Description For Visit Members Leonel [place] Vaginal Discharge October-0 Bassett In Womens or 2-201 Joselin. Health ALLIE, LesionEncounter 8 700 PO Box for suprvsn of Medical 1522, normal , [facility], third [email or web address] Eduardo Melvin, weeks gestation 120, , [place], tel:[phone] , [place]. tel: [phone] Leonel [place] Encounter for Sep- Bassett In Womens suprvsn of normal 8-201 Joselin. Health PA, , third 8 700 PO Box [email or web address] weeks Medical 1522, gestation of [facility], Eduardo Melvin, 120, , [place], tel: [phone] , [place]. tel: [phone] Leonel [place] Matern care for Apr-1 Bassett In Womens Ultrasound oth or susp poor 8-201 Joselin. Health PA, fetl grth, third 8 700 PO Box tri, unspLow Medical 1522, [facility] [place], Nos Or W/out Eduardo Melvin, Hemorrhage, Third 120, [id number], [email or web address] weeks [place], gestation of [place], tel:[phone] , [place]. tel: [phone] Leonel [place] Low Lying Apr-0 Bassett In Womens Placenta Nos Or 3-201 Joselin. Health PA, W/out Hemorrhage, 8 700 PO Box Third [id number] Medical 1522, weeks gestation [facility] [place], of Eduardo Melvin, 120, , [place], tel:[phone] , [place]. tel: [phone] Leonel [place] Matern care for Mar-1 Sobbing In Womens oth or susp poor 9-201 Mau. Health PA, fetl grth, 2nd 8 700 PO Box tri, unspLow Medical 1522, [facility] [place], Nos Or W/out Drive, [place], Hemorrhage, [id number], Second 120, [place] TrimesterAnemia [place], tel: complicating [place], , second [address], [email or web address] weeks [place]. gestation of tel: [phone] Leonel [place] Encounter for Feb-2 Bassett In Womens suprvsn of normal 6-201 Joselin. Health PA, , second 8 700 PO Box [email or web address] weeks Medical 1522, gestation of [facility], Eduardo Melvin, 120, , [place], tel:[phone] , [place]. tel: [phone] Leonel [place] Low Lying Travon-2 Bassett In Womens Placenta Nos Or 9-201 Joselin. Health PA, W/out Hemorrhage, 8 700 PO Box Second Medical 1522, [id number] weeks [facility], gestation of Eduardo Melvin, 120, , [place], [place], tel:[phone] , [place]. tel: [phone] Leonel [place] Matern care for Travon-2 Bassett In Womens Ultrasound oth or susp poor 9-201 Joselin. Health PA, fetl grth, 2nd 8 700 PO Box tri, unsp20 weeks Medical 1522, gestation of [facility], Eduardo Melvin, 120, [id number], [place], tel:[phone] , [place]. tel: [phone] Leonel [place] Matern care for Travon-0 Bassett In Womens oth or susp poor 8-201 Joselin. Health PA, fetl grth, 2nd 8 700 PO Box tri, [email or web address] weeks Medical 1522, gestation of [facility], Eduardo Melvin, 120, , [place], [place], tel:[phone] , [place]. tel: [phone] Leonel [place] Dec-2 Bassett In Womens 7-201 Joselin. Health PA, 7 700 PO Box Medical 1522, [facility], Eduardo Melvin, 120, [id number], [place], [place], tel:[phone] , [place]. tel:[phone] Leonel [place] Encounter for Dec-1 Bassett In Womens suprvsn of normal 1-201 Joselin. Health PA, , first 7 700 PO Box weeks Medical 1522, gestation of [facility], Eduardo Melvin, 120, [id number], [place], tel:[phone] , [place]. tel:[phone] Leonel [place] Encounter for Dec-1 Bassett In Womens Ultrasound suprvsn of normal 1-201 Joselin. Health PA, , first 7 700 PO Box [email or web address] weeks Medical 1522, gestation of [facility], Eduardo Melvin, 120, [id number], [place], tel:[phone] , [place]. tel:[phone] Leonel [place] Vaginal Discharge Nov-3 Bassett Referring In Womens or LesionPap 0-201 Joselin. Provider: Mu KELLEY, Smear Screening, 7 700 Joselin Bassett PO Box [facility]ervix[facility]ounter Medical , 700 1522, for suprvsn of [facility], normal , , [facility] Dr MÉNDEZ, second 120, Eduardo 120, [id number], [id number] weeks [place], gestation of [place], tel: [phone]. , [place]. tel: tel: [phone] Leonel [place] Qualitative Oct-2 Bassett Referring In Womens platelet 3-201 Joselin. Provider: Mu KELLEY, defectsQualitativ 5 700 Joselin Bassett PO Box e platelet Medical , 700 1522, defectsPostpartum [facility], Follow-Up, , [facility] Dr MÉNDEZ, Routine 120, Eduardo 120, , [place], [place], tel: [phone]. , [place]. tel: tel: [phone] Leonel [place] Dec-2 Bassett Referring In Womens 1-201 Joselin. Provider: Mu KELLEY, 5 700 Ojselin Bassett PO Box Medical , 700 1522, [place] [address], [facility] Dr MÉNDEZ, 120, Eduardo 120, , [place], [place], [place], tel: [phone]. , [place]. tel: tel: [phone] Leonel [place] Feb-2 Bassett In Womens 7-201 Joselin. Mu KELLEY, 5 700 PO Leonore Medical 1522, [place] [place] [address] Talon, Eduardo [place], 120, , [place], tel: [phone] , [place]. tel: [phone] Leonel [place] Travon-0 Bassett In Womens 6-201 Joselin. Mu KELLEY, 5 700 PO Leonore Medical 1522, [place] Talon, [facility], 120, [id number], [place], tel:[phone] , [place]. tel:[phone] Family History Family Member Diagnosis Age At [...] name Insurance type Covered republican ID Authorization(s) [facility] [id number] Medicaid [employer] [place] [id number] [place] [employer] [facility] [place] [id number] Medicaid [employer] [facility] [place] [id number] Medicaid [employer] [facility] [place] [id number] Medicaid Social History Type Description Quantity Date Captured Alcohol Use Details No Caffeine Use Details Unknown Tobacco Use Status Smoking Status Former smoker Vital Signs Date / Height Weight BMI Pulse Blood Temperature Respiratory Body Head BMI Time: Rate Pressure Rate Surface Circumference percentile Area 152.00 26.6 lbs 7 mm[Hg] 1:37 kg/m PM eter (2) Chief Complaint And Reason For Visit Unknown Chief Complaint And Reason For Visit Reason For Referral Reason For Referral Unknown Plan Of Care Date Type Action Status Appointment Darya Salmon BOOKED Future Order: Radiology Order Complete OB Ultrasound > 14 Ordered Weeks ([id number]) Future Order: Radiology Order Ultrasound OB Follow-up ([id number]) Ordered Future Order: Radiology Order Nuchal Translucency ([id number]) Ordered Future Order: Lab Order Pap Smear [...]
[2017-11-21] MEDS: LR 1,000 ML IV PRN ×2 (06:27→15:37)
[2017-11-21] MEDS: D5LR 1,000 ML IV PRN ×2 (06:27→16:12)
[2017-11-21] MEDS ORDERED: DEXAMETHASONE 4 MG/ML INJECTION IM ONE (08:30)
--- NOTE | 2017-11-21 10:51 | Anesthesia Preoperative Report ---
Anesthesia Epidural/Spinal Rec - Date and Time Date: 11/21/17 Plan: GETA - Vital Signs Vital Signs: Temperature 98.5 F 11/21/17 06:19 Pulse Rate 86 11/21/17 06:19 Respiratory Rate 16 11/21/17 06:19 Blood Pressure 116/64 11/21/17 06:19 Pulse Oximetry 100 11/21/17 06:19 /Para: P:2 Heart Rate: 147 - Medictaions & Allergies Inpatient Medications: Current Medications Acetaminophen (Tylenol) 500 - 1,000 mg PO Q4H PRN PRN Reason: Pain Al Hydroxide/Mg Hydroxide (Maalox Plus) 30 ml PO Q3H PRN PRN Reason: Indigestion Calcium Carbonate (Tums) 500 - 1,000 mg PO Q2H PRN PRN Reason: Indigestion Carboprost Tromethamine (Hemabate) 250 mcg IM O PRN PRN Reason: .Downtime Dextrose/Lactated Ringer's (Dextrose 5%-Lactated Ringers) 1,000 mls @ 125 mls/ hr IV .Q8H PRN PRN Reason: Labor Last Admin: 11/21/17 06:27 Dose: 125 mls/hr Lactated Ringer's (Lactated Ringers) 1,000 mls @ 999 mls/hr IV .Q1H1M PRN Last Admin: 11/21/17 06:27 Dose: 999 mls/hr Oxytocin (Pitocin Drip) 30 unit in 500 mls @ 2 mls/hr IV .Q24H PRN; Protocol PRN Reason: Induction/Augmentation Lidocaine HCl (Xylocaine-Mpf 1% Vial) 0.2 mg ID O PRN PRN Reason: IV Start Methylergonovine Maleate (Methergine) 0.2 mg IM O PRN Misoprostol (Cytotec) 800 mcg NH ONCE PRN Allergies/Adverse Reactions: Allergies Allergy/AdvReac Type Severity Reaction Status Date / Time nitrofurantoin Allergy Mild RASH Verified 11/18/12 12:36 Sulfa (Sulfonamide Allergy Mild Verified 01/06/15 11:14 Antibiotics) Nitrofurantoin Macrocrystal Allergy Mild RASH Uncoded 11/18/12 12:36 - Home Medications Home Medications: Home Medications Medication Instructions Recorded Confirmed Type Vits W-Ca,Fe,Fa(<1MG) 1 tab PO DAILY #0 07/18/11 History ( Vitamins) Ascorbic Acid [Vitamin C] 125 mg PO DAILY 11/12/17 11/12/17 History Iron 325 mg PO BID 11/12/17 11/12/17 History - Medical History Cardiovascular: Reports: Other (thrombocytopenia ) Other History: Reports: Now - Surgical History Reproductive Surgery/Treatment: DENIES: Section Anesthesia Reactions: None Hx Family Anesthesia Reaction: No History of Motion Sickness: No - Social History Smoking Status: Former smoker Second Hand Exposure: No Substance Use Type: does not use Alcohol Intake Frequency: does not drink - Pertinent Findings Lab Data: CBC and BMP 11/21/17 06:11 11/21/17 08:08 BMP 11/21/17 08:08 Sodium 141 Potassium 3.3 L Chloride 108 H Carbon Dioxide 22 BUN 6.0 L Creatinine 0.5 L Glucose 108 Calcium 8.8 Liver Function 11/21/17 Range/Units 08:08 Total Bilirubin 0.30 (0.20-1.30) MG/DL AST 18 (14-36) U/L ALT 9 (1-35) U/L Alkaline Phosphatase 136 H (38-126) U/L Albumin 3.4 L (3.5-5.0) g/dL - Physical Exam Respiratory Exam: lungs clear, bilateral breath sounds equal Cardiovascular Exam: regular rate and rhythm - Airway Assessment Mallampati Score: II TMD: 3 Fingerbreadths Neck Extension: good Overall Assessment: no airway concerns - ASA ASA Score: 2 - Discussion Discussion: Discussed risks/options/alternatives of anesthesia and questions answered. Patient consents. Nursing pain assessment noted. Anesthesia Discussion: family member Attestation Statement: Prior to the delivery of any anesthetic medication, I examined the patient, developed the plan, obtained the patient's consent and discussed the risk and benefits of the procedure with the patient/guardian.
[2017-11-21 14:43] VITALS: BMI 28.0
[2017-11-21] MEDS ORDERED: NALBUPHINE 10 MG/ML INJECTION IVP PRN (16:29)
[2017-11-21] MEDS ORDERED: TRANEXAMIC ACID 1,000 MG in NS 100 ML IV ONE (17:05)
[2017-11-21] MEDS ORDERED: MORPHINE SULFATE 4mg INJECTION IVP ONE (17:45)
[2017-11-21] MEDS ORDERED: HYDROCODONE/APAP 5mg/325mg TABLET PO PRN (17:49)
[2017-11-21] MEDS ORDERED: HYDROCORTISONE 2.5% CREAM 30gm RECTALLY PRN (17:49)
[2017-11-21] MEDS ORDERED: DiphenhydrAMINE 25 MG CAPSULE PO PRN (17:49)
[2017-11-21] MEDS ORDERED: MEASLES-MUMPS-RUBELLA VACCINE 0.5ml INJECTION SQ ONE (17:49)
[2017-11-21] MEDS ORDERED: OXYTOCIN DRIP 30 UNIT/500 ML ML IV SCH (18:00)
--- NOTE | 2017-11-21 18:44 | Labor and Delivery Note ---
DATE OF DELIVERY 11/21/2017 DESCRIPTION Darya is a 27-year-old 3, para 2 at 39 weeks 3 days gestational age who was brought in for a logistical Pitocin induction. Upon arrival her platelets were only 84,000 so Anesthesia did not feel comfortable placing an epidural. Her CMP and blood pressures were all normal. She has a history of thrombocytopenia in the past. Her membranes were ruptured artificially, returning clear fluids. She progressed steadily throughout labor. During pushing baby had a terminal bradycardia down into the 90s. She was able to deliver the head within a few contractions. Nose and mouth were suctioned. The rest of the baby was delivered with a large gush of bloody fluid. The infant's mouth and nose were full of bloody fluid and this was suctioned. Baby was vigorous at delivery so she was placed on mom's abdomen and the cord clamping was delayed for more than two minutes. The placenta delivered spontaneously with another large gush of bloody fluid. There were no lacerations. Her uterus contracted down well after delivery. We also gave her a dose of TXA after the cord was clamped due to her thrombocytopenia. Baby is a viable female , Apgars 8/9, weight 3629 g, name "Aris." Mom and baby tolerated the delivery well. [facility]
[2017-11-21] MEDS: IBUPROFEN 800 MG TABLET PO PRN ×2 (19:10→19:52)
--- NOTE | 2017-11-22 08:11 | OB/GYN Progress Note ---
OB-PP Progress Note - General PPD1 - Subjective Date: 11/22/17 Lochia: Minimal Pain: controlled Voiding: voiding Nausea or Vomiting Present: No - Objective Vital Signs: Last Vital Signs Temp 97.9 F 11/21/17 21:45 Pulse 76 11/22/17 05:00 Resp 16 11/22/17 05:00 BP 104/63 11/22/17 05:00 Pulse Ox 99 11/22/17 05:00 Urine Output: good General: alert and oriented Abdomen: fundus firm, non-tender Extremities: non-tender Edema: none Laboratory: Laboratory Results - last 24 hr 11/21/17 11/21/17 11/21/17 06:11 08:08 11:06 WBC 10.2 RBC 4.13 Hgb 12.7 Hct 37.0 MCV 89.6 MCH 30.8 MCHC 34.3 RDW Std Deviation 54.2 H Plt Count 83 L MPV 11.3 Turbidity < 20 Sodium 141 Potassium 3.3 L Chloride 108 H Carbon Dioxide 22 Anion Gap 11 BUN 6.0 L Creatinine 0.5 L GFR Calculation 150 BUN/Creatinine Ratio 12 Glucose 108 Calculated Osmolality 270 Calcium 8.8 Total Bilirubin 0.30 Icterus Index < 2 AST 18 ALT 9 Alkaline Phosphatase 136 H Total Protein 6.0 L Albumin 3.4 L Globulin 2.6 Albumin/Globulin Ratio 1.3 Specimen Hemolysis < 15 Blood Type B Positive Antibody Screen Negative 11/22/17 06:10 WBC 14.4 H D RBC 3.24 L Hgb 9.8 L D Hct 29.4 L D MCV 90.7 MCH 30.2 MCHC 33.3 RDW Std Deviation 53.0 H Plt Count 75 L MPV 10.7 Turbidity Sodium Potassium Chloride Carbon Dioxide Anion Gap BUN Creatinine GFR Calculation BUN/Creatinine Ratio Glucose Calculated Osmolality Calcium Total Bilirubin Icterus Index AST ALT Alkaline Phosphatase Total Protein Albumin Globulin Albumin/Globulin Ratio Specimen Hemolysis Blood Type Antibody Screen - Assessment Assessment: SP, JAQUELINE Comments: thrombocytopenia - Plan Plan: routine care Expected date of discharge: 11/23/17 repeat CBC
[2017-11-22] MEDS: DOCUSATE CALCIUM 240 MG CAPSULE PO SCH ×2 (10:32→16:29)
--- NOTE | 2017-11-22 10:43 | Anesthesia Postoperative Note ---
- Date and Time Date: 11/22/17 Time: 10:43 - Status Patient Participated in Evaluation: Patient Participated in Person Vital Signs: Temperature 97.9 F 11/21/17 21:45 Pulse Rate 76 11/22/17 05:00 Respiratory Rate 16 11/22/17 05:00 Blood Pressure 104/63 11/22/17 05:00 Pulse Oximetry 99 11/22/17 05:00 Respiratory Function: Airway Patent Cardiovascular Function: Regular Pulse Mental Status: Alert and Oriented Pain Intensity: 0 Hydration: Taking PO Fluids Complications During Recover: None Apparent - Follow-Up Instructions Instructions: Per Surgeon
[2017-11-22] MEDS: IBUPROFEN 800 MG TABLET PO PRN (16:29)
[2017-11-23 06:31] VITALS: BP 114/66; PULSE 72; RESP 16; TEMP 97.6; O2SAT 99
[2017-11-23] MEDS: DOCUSATE CALCIUM 240 MG CAPSULE PO SCH (13:28)
== END 2017-11-23 12:30 | disposition home or self-care (01) | DRG 774 ==
LOC: MC 05:47
PROVIDERS: ADMIT Obstetrics & Gynecology; ATTEND Obstetrics & Gynecology